=== PATIENT | male | born 1945 | race Caucasian/White ===

== ENCOUNTER 2019-12-19 05:51 | Inpatient (IN) ==
[2019-12-19] MEDS ORDERED: VANCOMYCIN 1,000 MG VIAL ONE (06:00)
[2019-12-19] MEDS ORDERED: ceFAZolin 1,000 MG VIAL ONE (06:00)
[2019-12-19] MEDS ORDERED: ceFAZolin 1,000 MG in SYRINGE 1 EACH IV ONE (06:30)
[2019-12-19] MEDS ORDERED: VANCOMYCIN INJ 1,000 MG in SODIUM CHLORIDE 0.9% 250 ML IV ONE (06:30)
[2019-12-19 06:54] LABS: PT Patient Result 10.8 SECS (9.8-11.9); Partial Thromboplastin Time 26.5 SECS (23.9-33.8)
[2019-12-19] MEDS ORDERED: BUPIVACAINE SPINAL 0.75% 2 ML AMP SPINAL ONE (06:54)
[2019-12-19] MEDS ORDERED: ROPIVACAINE 0.5% 30 ML VIAL ONE (06:54)
[2019-12-19] MEDS ORDERED: MIDAZOLAM 2 MG/2 ML VIAL ONE (06:54)
[2019-12-19] MEDS ORDERED: LIDOCAINE 1% 5 ML VIAL ONE (06:54)
[2019-12-19] MEDS ORDERED: DEXAMETHASONE 4 MG/1 ML VIAL ONE (06:55)
[2019-12-19] MEDS ORDERED: fentaNYL 100 MCG/2 ML VIAL ONE (06:55)
[2019-12-19] MEDS ORDERED: TRANEXAMIC ACID 1,000 MG/10 ML VIAL ONE (07:10)
[2019-12-19] MEDS: LACTATED RINGERS 1,000 ML IV SCH (07:25)
[2019-12-19] MEDS ORDERED: LACTULOSE 20 GM/30 ML UDCUP PO PRN (08:54)
[2019-12-19] MEDS ORDERED: diphenhydrAMINE CAP 25 MG CAPSULE PO PRN (08:54)
[2019-12-19] MEDS ORDERED: BISACODYL 10 MG SUPP RECTAL PRN (08:54)
[2019-12-19] MEDS ORDERED: PROMETHAZINE 25 MG/1 ML VIAL IM PRN (08:54)
[2019-12-19] MEDS ORDERED: MORPHINE 4 MG/1 ML VIAL IV PRN ×2 (08:54→09:25)
[2019-12-19] MEDS ORDERED: ONDANSETRON 4 MG/2 ML VIAL IV PRN ×2 (08:54→13:52)
[2019-12-19] MEDS ORDERED: TEMAZEPAM 7.5 MG CAPSULE PO PRN (08:54)
[2019-12-19] MEDS ORDERED: GLUCAGON 1 MG VIAL IM PRN (08:56)
[2019-12-19] MEDS ORDERED: DEXTROSE 50% 25 GM/50 ML VIAL IV PRN (08:56)
[2019-12-19] MEDS ORDERED: propofoL 200 MG/20 ML VIAL IV ONE (10:28)
[2019-12-19] MEDS ORDERED: GLYCOPYRROLATE 0.4 MG/2 ML VIAL ONE (10:29)
[2019-12-19] MEDS ORDERED: HYDROmorphone 2 MG/1 ML VIAL ONE (13:37)
[2019-12-19] MEDS ORDERED: ONDANSETRON 4 MG/2 ML VIAL ONE (13:37)
[2019-12-19] MEDS: HYDROmorphone 2 MG/1 ML VIAL IV PRN ×2 (13:39→13:53)
[2019-12-19] MEDS: ASPIRIN EC 81 MG TABLET PO SCH (15:53)
[2019-12-19] MEDS: PIOGLITAZONE 15 MG TABLET PO SCH (15:53)
[2019-12-19] MEDS: MULTIVITAMIN (CENTRUM) TABLET PO SCH (15:54)
[2019-12-19] MEDS: DOCUSATE SODIUM 100 MG CAPSULE PO SCH ×2 (15:54→21:29)
[2019-12-19] MEDS: ATORVASTATIN 40 MG TABLET PO SCH (15:54)
[2019-12-19] MEDS: GABAPENTIN 300 MG CAPSULE PO SCH ×2 (15:54→21:29)
[2019-12-19] MEDS: hydroCHLOROthiazide 12.5 MG CAPSULE PO SCH (15:54)
[2019-12-19] MEDS: TAMSULOSIN 0.4 MG CAPSULE PO SCH (15:54)
[2019-12-19] MEDS: CLOPIDOGREL 75 MG TABLET PO SCH (15:55)
[2019-12-19] MEDS: amLODIPine 5 MG TABLET PO SCH (15:55)
[2019-12-19] MEDS: INSULIN REGULAR 100 UNIT/ML SUBCUT SCH ×3 (15:55→21:39)
[2019-12-19] MEDS: atenoloL 50 MG TABLET PO SCH (15:55)
[2019-12-19] MEDS: ceFAZolin 2,000 MG in PREMIX 1 EACH IV SCH (17:36)
[2019-12-19] MEDS: glipiZIDE 5 MG TABLET PO SCH (21:28)
[2019-12-19] MEDS: metFORMIN 500 MG TABLET PO SCH (21:29)
[2019-12-19] MEDS: FONDAPARINUX 2.5 MG/0.5 ML SYRINGE SUBCUT SCH (21:30)
[2019-12-20] MEDS: ceFAZolin 2,000 MG in PREMIX 1 EACH IV SCH (03:13)
[2019-12-20 06:11] LABS: Basophils % 0.2 % (0.0-0.8); Eosinophils % 0.2 % (0.00-10.9); Hematocrit 41.7 VOL% (42.0-52.0); Hemoglobin 13.4 GM/DL (14.0-18.0); Immature Granulocytes % 0.8 %; Immature Granulocytes Absolute 0.11 #; Lymphocytes # 1.8 10*3/uL (1.4-4.0); Lymphocytes % 13.4 % (21.2-54.2); Mean Corpuscular HGB Conc 32.1 GM/DL (32-36); Mean Corpuscular Volume 92.7 FL (87-102); Mean Platelet Volume 10.6 FL (9.6-12.0); Monocytes % 11.7 % (1.7-12.7); Neutrophils % 73.7 % (38.7-73.9); Platelet Count 255 T/CUMM (130-400); Red Cell Distribution Width 13.2 % (9.3-17.3); White Blood Count 13.3 T/CUMM (4-12)
[2019-12-20 06:36] LABS: Calcium 8.7 MG/DL (8.5-10.1); Osmolality,Calculated 276.8 MOS/KG (273-304)
[2019-12-20] MEDS: INSULIN REGULAR 100 UNIT/ML SUBCUT SCH ×4 (07:48→21:34)
[2019-12-20] MEDS: glipiZIDE 5 MG TABLET PO SCH ×2 (09:31→21:30)
[2019-12-20] MEDS: PIOGLITAZONE 15 MG TABLET PO SCH (09:31)
[2019-12-20] MEDS: amLODIPine 5 MG TABLET PO SCH (09:31)
[2019-12-20] MEDS: hydroCHLOROthiazide 12.5 MG CAPSULE PO SCH (09:31)
[2019-12-20] MEDS: TAMSULOSIN 0.4 MG CAPSULE PO SCH (09:31)
[2019-12-20] MEDS: ASPIRIN EC 81 MG TABLET PO SCH (09:32)
[2019-12-20] MEDS: CLOPIDOGREL 75 MG TABLET PO SCH (09:32)
[2019-12-20] MEDS: MULTIVITAMIN (CENTRUM) TABLET PO SCH (09:32)
[2019-12-20] MEDS: atenoloL 50 MG TABLET PO SCH (09:32)
[2019-12-20] MEDS: DOCUSATE SODIUM 100 MG CAPSULE PO SCH ×2 (09:32→21:31)
[2019-12-20] MEDS: metFORMIN 500 MG TABLET PO SCH ×2 (09:47→21:30)
[2019-12-20] MEDS: GABAPENTIN 300 MG CAPSULE PO SCH ×2 (09:47→21:33)
[2019-12-20] MEDS: ATORVASTATIN 40 MG TABLET PO SCH (09:47)
[2019-12-20] MEDS: FONDAPARINUX 2.5 MG/0.5 ML SYRINGE SUBCUT SCH (21:30)
[2019-12-21 06:09] LABS: Basophils # 0.1 10*3/uL (0.0-0.2); Basophils % 0.5 % (0.0-0.8); Eosinophils # 0.2 10*3/uL (0.0-0.87); Eosinophils % 1.5 % (0.00-10.9); Hematocrit 39.3 VOL% (42.0-52.0); Hemoglobin 12.6 GM/DL (14.0-18.0); Immature Granulocytes % 1.4 %; Immature Granulocytes Absolute 0.14 #; Lymphocytes # 1.9 10*3/uL (1.4-4.0); Lymphocytes % 18.4 % (21.2-54.2); Mean Corpuscular HGB Conc 32.1 GM/DL (32-36); Mean Corpuscular Volume 91.8 FL (87-102); Mean Platelet Volume 10.6 FL (9.6-12.0); Monocytes % 13.7 % (1.7-12.7); Neutrophils % 64.5 % (38.7-73.9); Platelet Count 230 T/CUMM (130-400); Red Blood Count 4.28 MC/CUMM (3.8-5.5); Red Cell Distribution Width 13.5 % (9.3-17.3); White Blood Count 10.2 T/CUMM (4-12)
[2019-12-21 07:04] LABS: Calcium 9.1 MG/DL (8.5-10.1); Osmolality,Calculated 271.4 MOS/KG (273-304)
[2019-12-21] MEDS: INSULIN REGULAR 100 UNIT/ML SUBCUT SCH ×4 (08:42→21:10)
[2019-12-21] MEDS: MULTIVITAMIN (CENTRUM) TABLET PO SCH (08:42)
[2019-12-21] MEDS: amLODIPine 5 MG TABLET PO SCH (08:42)
[2019-12-21] MEDS: ATORVASTATIN 40 MG TABLET PO SCH (08:42)
[2019-12-21] MEDS: GABAPENTIN 300 MG CAPSULE PO SCH ×2 (08:43→21:11)
[2019-12-21] MEDS: CLOPIDOGREL 75 MG TABLET PO SCH (08:43)
[2019-12-21] MEDS: atenoloL 50 MG TABLET PO SCH (08:43)
[2019-12-21] MEDS: ASPIRIN EC 81 MG TABLET PO SCH (08:43)
[2019-12-21] MEDS: glipiZIDE 5 MG TABLET PO SCH ×2 (08:43→21:11)
[2019-12-21] MEDS: metFORMIN 500 MG TABLET PO SCH ×2 (08:44→21:12)
[2019-12-21] MEDS: PIOGLITAZONE 15 MG TABLET PO SCH (08:44)
[2019-12-21] MEDS: hydroCHLOROthiazide 12.5 MG CAPSULE PO SCH (08:44)
[2019-12-21] MEDS: TAMSULOSIN 0.4 MG CAPSULE PO SCH (08:44)
[2019-12-21] MEDS: DOCUSATE SODIUM 100 MG CAPSULE PO SCH ×2 (08:45→21:11)
[2019-12-21] MEDS: LACTATED RINGERS 1,000 ML IV SCH (13:12)
[2019-12-21] MEDS: FONDAPARINUX 2.5 MG/0.5 ML SYRINGE SUBCUT SCH (21:09)
[2019-12-21] MEDS: MAGNESIUM HYDROXIDE SUSP 30 ML UDCUP PO PRN (21:11)
[2019-12-22 04:35] LABS: Basophils # 0.1 10*3/uL (0.0-0.2); Basophils % 0.6 % (0.0-0.8); Eosinophils # 0.2 10*3/uL (0.0-0.87); Eosinophils % 1.9 % (0.00-10.9); Hematocrit 37.1 VOL% (42.0-52.0); Hemoglobin 12.2 GM/DL (14.0-18.0); Immature Granulocytes Absolute 0.21 #; Lymphocytes # 2.4 10*3/uL (1.4-4.0); Lymphocytes % 22.9 % (21.2-54.2); Mean Corpuscular HGB Conc 32.9 GM/DL (32-36); Mean Corpuscular Volume 90.5 FL (87-102); Mean Platelet Volume 10.5 FL (9.6-12.0); Monocytes % 13.7 % (1.7-12.7); Neutrophils % 58.9 % (38.7-73.9); Platelet Count 224 T/CUMM (130-400); Red Cell Distribution Width 13.5 % (9.3-17.3); White Blood Count 10.3 T/CUMM (4-12)
[2019-12-22 04:53] LABS: Calcium 9.1 MG/DL (8.5-10.1); Osmolality,Calculated 268.4 MOS/KG (273-304)
[2019-12-22] MEDS: INSULIN REGULAR 100 UNIT/ML SUBCUT SCH ×4 (07:44→21:54)
[2019-12-22] MEDS: hydroCHLOROthiazide 12.5 MG CAPSULE PO SCH (09:32)
[2019-12-22] MEDS: MAGNESIUM HYDROXIDE SUSP 30 ML UDCUP PO PRN ×2 (09:32→17:06)
[2019-12-22] MEDS: TAMSULOSIN 0.4 MG CAPSULE PO SCH (09:33)
[2019-12-22] MEDS: DOCUSATE SODIUM 100 MG CAPSULE PO SCH ×2 (09:33→21:53)
[2019-12-22] MEDS: ATORVASTATIN 40 MG TABLET PO SCH (09:33)
[2019-12-22] MEDS: CLOPIDOGREL 75 MG TABLET PO SCH (09:33)
[2019-12-22] MEDS: PIOGLITAZONE 15 MG TABLET PO SCH (09:33)
[2019-12-22] MEDS: atenoloL 50 MG TABLET PO SCH (09:33)
[2019-12-22] MEDS: amLODIPine 5 MG TABLET PO SCH (09:34)
[2019-12-22] MEDS: ASPIRIN EC 81 MG TABLET PO SCH (09:34)
[2019-12-22] MEDS: glipiZIDE 5 MG TABLET PO SCH ×2 (09:34→21:53)
[2019-12-22] MEDS: MULTIVITAMIN (CENTRUM) TABLET PO SCH (09:34)
[2019-12-22] MEDS: GABAPENTIN 300 MG CAPSULE PO SCH ×2 (09:34→21:54)
[2019-12-22] MEDS: metFORMIN 500 MG TABLET PO SCH ×2 (10:09→21:53)
[2019-12-22] MEDS: FONDAPARINUX 2.5 MG/0.5 ML SYRINGE SUBCUT SCH (21:54)
[2019-12-23] MEDS: GABAPENTIN 300 MG CAPSULE PO SCH ×2 (09:01→21:10)
[2019-12-23] MEDS: metFORMIN 500 MG TABLET PO SCH ×2 (09:01→21:09)
[2019-12-23] MEDS: TAMSULOSIN 0.4 MG CAPSULE PO SCH (09:01)
[2019-12-23] MEDS: MULTIVITAMIN (CENTRUM) TABLET PO SCH (09:02)
[2019-12-23] MEDS: hydroCHLOROthiazide 12.5 MG CAPSULE PO SCH (09:02)
[2019-12-23] MEDS: ASPIRIN EC 81 MG TABLET PO SCH (09:02)
[2019-12-23] MEDS: PIOGLITAZONE 15 MG TABLET PO SCH (09:02)
[2019-12-23] MEDS: ATORVASTATIN 40 MG TABLET PO SCH (09:02)
[2019-12-23] MEDS: CLOPIDOGREL 75 MG TABLET PO SCH (09:03)
[2019-12-23] MEDS: amLODIPine 5 MG TABLET PO SCH (09:03)
[2019-12-23] MEDS: glipiZIDE 5 MG TABLET PO SCH ×2 (09:03→21:08)
[2019-12-23] MEDS: atenoloL 50 MG TABLET PO SCH (09:03)
[2019-12-23] MEDS: INSULIN REGULAR 100 UNIT/ML SUBCUT SCH ×4 (09:04→21:15)
[2019-12-23] MEDS: DOCUSATE SODIUM 100 MG CAPSULE PO SCH ×2 (09:04→21:17)
[2019-12-23] MEDS: FONDAPARINUX 2.5 MG/0.5 ML SYRINGE SUBCUT SCH (21:16)
[2019-12-24] MEDS: PIOGLITAZONE 15 MG TABLET PO SCH (09:24)
[2019-12-24] MEDS: TAMSULOSIN 0.4 MG CAPSULE PO SCH (09:25)
[2019-12-24] MEDS: glipiZIDE 5 MG TABLET PO SCH (09:25)
[2019-12-24] MEDS: metFORMIN 500 MG TABLET PO SCH (09:26)
[2019-12-24] MEDS: GABAPENTIN 300 MG CAPSULE PO SCH (09:26)
[2019-12-24] MEDS: MULTIVITAMIN (CENTRUM) TABLET PO SCH (09:26)
[2019-12-24] MEDS: CLOPIDOGREL 75 MG TABLET PO SCH (09:27)
[2019-12-24] MEDS: amLODIPine 5 MG TABLET PO SCH (09:27)
[2019-12-24] MEDS: ATORVASTATIN 40 MG TABLET PO SCH (09:27)
[2019-12-24] MEDS: atenoloL 50 MG TABLET PO SCH (09:28)
[2019-12-24] MEDS: hydroCHLOROthiazide 12.5 MG CAPSULE PO SCH (09:28)
[2019-12-24] MEDS: ASPIRIN EC 81 MG TABLET PO SCH (09:29)
[2019-12-24] MEDS: INSULIN REGULAR 100 UNIT/ML SUBCUT SCH ×2 (10:27→12:00)
[2019-12-24] MEDS: DOCUSATE SODIUM 100 MG CAPSULE PO SCH (10:28)
[2019-12-24 11:52] VITALS: BP 132/77
== END 2019-12-24 11:35 | disposition swing bed (61) | DRG 470 ==
LOC: N.OR 05:51 → N.SDSINP 05:53 → N.3E 14:25
PROVIDERS: ADMIT Orthopaedic Surgery; ATTEND Orthopaedic Surgery

== ENCOUNTER 2022-03-03 10:30 | Inpatient (IN) ==
[2022-03-03] MEDS ORDERED: ALBUTEROL/IPRATROPIUM 3 ML NEB RESP TX STA (11:02)
[2022-03-03] MEDS ORDERED: cefTRIAXone 1,000 MG in SODIUM CHLORIDE 0.9% 100 ML IV STA (11:02)
[2022-03-03 11:45] LABS: Basophils % 0.1 % (0.0-0.8); Hematocrit 37.8 VOL% (42.0-52.0); Hemoglobin 11.9 GM/DL (14.0-18.0); Immature Granulocytes Absolute 0.08 #; Lymphocytes # 0.8 10*3/uL (1.4-4.0); Lymphocytes % 9.7 % (21.2-54.2); Mean Corpuscular HGB Conc 31.5 GM/DL (32-36); Mean Corpuscular Volume 96.9 FL (87-102); Monocytes # 0.6 10*3/uL (0.11-0.8); Monocytes % 7.4 % (1.7-12.7); Neutrophils % 81.8 % (38.7-73.9); Platelet Count 186 T/CUMM (130-400); Red Cell Distribution Width 14.1 % (9.3-17.3); White Blood Count 8.1 T/CUMM (4-12)
[2022-03-03 12:06] LABS: Albumin 2.8 G/DL (3.4-5.0); Bilirubin,Total 0.6 MG/DL (0.20-1.00); Calcium 8.5 MG/DL (8.5-10.1); Osmolality,Calculated 279.7 MOS/KG (273-304); Potassium 3.9 MMOL/L (3.5-5.1); Total Protein 6.6 G/DL (6.4-8.2)
[2022-03-03] MEDS ORDERED: ACETAMINOPHEN 325 MG TABLET PO PRN (14:03)
[2022-03-03] MEDS ORDERED: ONDANSETRON 4 MG/2 ML VIAL IV PRN (14:03)
[2022-03-03] MEDS ORDERED: GLUCAGON 1 MG VIAL IM PRN (14:06)
[2022-03-03] MEDS ORDERED: DEXTROSE 10% 250 ML BAG IV PRN (14:06)
[2022-03-03] MEDS ORDERED: BENZONATATE 100 MG CAPSULE PO PRN (14:12)
[2022-03-03] MEDS ORDERED: LEVOFLOXACIN 750 MG TABLET PO SCH (14:30)
[2022-03-03] MEDS ORDERED: ALBUTEROL 2.5 MG/3 ML NEB RESP TX PRN (14:40)
[2022-03-03] MEDS ORDERED: INFLUENZA VIRUS VACCINE 0.5 ML SYRINGE IM ONE (17:04)
[2022-03-03] MEDS: PIPERACILLIN/TAZOBACTAM 3,375 MG in SODIUM CHLORIDE 0.9% 100 ML IV SCH (18:11)
[2022-03-03] MEDS: methylPREDNISolone SOD SUC 40 MG/1 ML VIAL IV SCH (18:11)
[2022-03-03] MEDS: ENOXAPARIN 40 MG/0.4 ML SYRINGE SUBCUT SCH (18:11)
[2022-03-03] MEDS: INSULIN LISPRO 100 UNIT/ML SUBCUT SCH ×2 (18:12→21:00)
[2022-03-03 18:21] LABS: Bacteria,Urine Occasional /HPF (Few); Bilirubin,Urine Negative (Negative); Blood, Urine Moderate mg/dL (Negative); Glucose,Urine (UA) Negative (Negative); Ketones,Urine Negative (Negative); Mucus,Urine Moderate /LPF (Occasional); Nitrite,Urine Negative (Negative); Protein,Urine 30 mg/dL (Negative); RBC,Urine 2 /HPF (0-4); Red Blood Cell Casts,Urine 97 /LPF (<1); Squamous Epithelial Cell,Urine Occasional /HPF (0-10); Uric Acid Crystals,Urine Occasional /HPF (<1); Urine Appearance Slightly Hazy (Clear); Urine Color Yellow (Yellow); Urine Specific Gravity 1.023 (1.001-1.035); Urine Urobilinogen < 2.0 eU/dL (<2.0)
[2022-03-03] MEDS: ACETAMINOPHEN 325 MG TABLET PO PRN (18:42)
[2022-03-03] MEDS ORDERED: ALBUTEROL 2.5 MG/3 ML NEB RESP TX SCH (19:00)
[2022-03-03] MEDS: ALBUTEROL/IPRATROPIUM 3 ML NEB RESP TX SCH (19:15)
[2022-03-03] MEDS ORDERED: MORPHINE 2 MG/1 ML SYRINGE IV ONE (20:11)
[2022-03-03] MEDS: MAGNESIUM OXIDE 400 MG TABLET PO SCH (20:48)
[2022-03-03] MEDS: CLOPIDOGREL 75 MG TABLET PO SCH (20:48)
[2022-03-03] MEDS: amLODIPine 5 MG TABLET PO SCH (20:48)
[2022-03-03] MEDS: TAMSULOSIN 0.4 MG CAPSULE PO SCH (20:48)
[2022-03-03] MEDS: guaiFENesin/DM ER 600-30 MG TABLET PO SCH (20:48)
[2022-03-03] MEDS: NIACIN 500 MG TABLET PO SCH (20:48)
[2022-03-03] MEDS: GABAPENTIN 300 MG CAPSULE PO SCH (20:48)
[2022-03-03] MEDS: NABUMETONE 500 MG TABLET PO SCH (20:48)
[2022-03-03] MEDS: MULTIVITAMIN (CENTRUM) TABLET PO SCH (20:48)
[2022-03-03 20:50] LABS: Arterial Base Excess iSTAT 1 MMOL/L (-2.5-2.5); Arterial Bicarbonate iSTAT 23.4 MMOL/L (20-26); Arterial O2 Saturation iSTAT 92 % (95-100); Arterial PCO2 iSTAT 31 MM HG (35-48); Arterial PO2 iSTAT 59 MM HG (80-95); Arterial Total CO2 iSTAT 24 MMO/L (23-27); Arterial pH iSTAT 7.487 (7.35-7.45)
[2022-03-04] MEDS: ALBUTEROL/IPRATROPIUM 3 ML NEB RESP TX SCH ×4 (00:20→19:25)
[2022-03-04] MEDS: PIPERACILLIN/TAZOBACTAM 3,375 MG in SODIUM CHLORIDE 0.9% 100 ML IV SCH ×3 (01:38→17:34)
[2022-03-04] MEDS: methylPREDNISolone SOD SUC 40 MG/1 ML VIAL IV SCH ×2 (03:16→15:25)
[2022-03-04 05:34] LABS: Basophils % 0.1 % (0.0-0.8); Hematocrit 35.7 VOL% (42.0-52.0); Hemoglobin 11.4 GM/DL (14.0-18.0); Immature Granulocytes % 1.6 %; Immature Granulocytes Absolute 0.13 #; Lymphocytes # 0.6 10*3/uL (1.4-4.0); Lymphocytes % 7.1 % (21.2-54.2); Mean Corpuscular HGB Conc 31.9 GM/DL (32-36); Mean Corpuscular Volume 96.2 FL (87-102); Mean Platelet Volume 9.9 FL (9.6-12.0); Monocytes # 0.4 10*3/uL (0.11-0.8); Monocytes % 4.3 % (1.7-12.7); Neutrophils % 86.9 % (38.7-73.9); Platelet Count 169 T/CUMM (130-400); Red Blood Count 3.71 MC/CUMM (3.8-5.5); Red Cell Distribution Width 13.9 % (9.3-17.3); White Blood Count 8.1 T/CUMM (4-12)
[2022-03-04 05:53] LABS: Albumin 2.4 G/DL (3.4-5.0); Bilirubin,Total 0.6 MG/DL (0.20-1.00); Calcium 8.4 MG/DL (8.5-10.1); Osmolality,Calculated 274.4 MOS/KG (273-304); Potassium 4.1 MMOL/L (3.5-5.1); Total Protein 6.3 G/DL (6.4-8.2)
[2022-03-04] MEDS: FINASTERIDE 5 MG TABLET PO SCH (09:04)
[2022-03-04] MEDS: TAMSULOSIN 0.4 MG CAPSULE PO SCH ×2 (09:04→22:23)
[2022-03-04] MEDS: INSULIN LISPRO 100 UNIT/ML SUBCUT SCH ×4 (09:04→22:25)
[2022-03-04] MEDS: lisinopriL 5 MG TABLET PO SCH (09:04)
[2022-03-04] MEDS: atenoloL 50 MG TABLET PO SCH (09:04)
[2022-03-04] MEDS: hydroCHLOROthiazide 25 MG TABLET PO SCH (09:04)
[2022-03-04] MEDS: CITALOPRAM 20 MG TABLET PO SCH (09:04)
[2022-03-04] MEDS: ASPIRIN EC 81 MG TABLET PO SCH (09:04)
[2022-03-04] MEDS: GABAPENTIN 300 MG CAPSULE PO SCH ×2 (09:04→22:25)
[2022-03-04] MEDS: NABUMETONE 500 MG TABLET PO SCH ×2 (09:04→22:24)
[2022-03-04] MEDS: PANTOPRAZOLE 40 MG TABLET PO SCH (09:04)
[2022-03-04] MEDS ORDERED: FUROSEMIDE 40 MG/4 ML VIAL IV ONE (10:13)
[2022-03-04] MEDS: guaiFENesin/DM ER 600-30 MG TABLET PO SCH (10:20)
[2022-03-04] MEDS: ENOXAPARIN 40 MG/0.4 ML SYRINGE SUBCUT SCH (15:25)
[2022-03-04] MEDS ORDERED: GLIPIZIDE METFORMIN PO SCH (21:00)
[2022-03-04] MEDS: glipiZIDE 5 MG TABLET PO SCH (22:23)
[2022-03-04] MEDS: PIOGLITAZONE 15 MG TABLET PO SCH (22:24)
[2022-03-04] MEDS: amLODIPine 5 MG TABLET PO SCH (22:24)
[2022-03-04] MEDS: MULTIVITAMIN (CENTRUM) TABLET PO SCH (22:24)
[2022-03-04] MEDS: metFORMIN 500 MG TABLET PO SCH (22:24)
[2022-03-04] MEDS: CLOPIDOGREL 75 MG TABLET PO SCH (22:24)
[2022-03-04] MEDS: ATORVASTATIN 40 MG TABLET PO SCH (22:24)
[2022-03-04] MEDS: MAGNESIUM OXIDE 400 MG TABLET PO SCH (22:25)
[2022-03-04] MEDS: NIACIN 500 MG TABLET PO SCH (22:35)
[2022-03-05] MEDS: ALBUTEROL/IPRATROPIUM 3 ML NEB RESP TX SCH ×4 (00:15→19:40)
[2022-03-05] MEDS: PIPERACILLIN/TAZOBACTAM 3,375 MG in SODIUM CHLORIDE 0.9% 100 ML IV SCH ×3 (01:57→16:43)
[2022-03-05] MEDS: methylPREDNISolone SOD SUC 40 MG/1 ML VIAL IV SCH ×2 (02:02→16:43)
[2022-03-05 05:29] LABS: Basophils % 0.2 % (0.0-0.8); Hematocrit 37.7 VOL% (42.0-52.0); Hemoglobin 12.1 GM/DL (14.0-18.0); Immature Granulocytes % 1.5 %; Immature Granulocytes Absolute 0.17 #; Lymphocytes # 0.7 10*3/uL (1.4-4.0); Lymphocytes % 6.4 % (21.2-54.2); Mean Corpuscular HGB Conc 32.1 GM/DL (32-36); Mean Platelet Volume 10.5 FL (9.6-12.0); Monocytes # 0.4 10*3/uL (0.11-0.8); Monocytes % 3.8 % (1.7-12.7); NRBC # 0.02 10*3/uL; Neutrophils % 88.1 % (38.7-73.9); Platelet Count 212 T/CUMM (130-400); Red Blood Count 3.97 MC/CUMM (3.8-5.5); Red Cell Distribution Width 13.6 % (9.3-17.3); White Blood Count 11.2 T/CUMM (4-12)
[2022-03-05 05:34] LABS: Osmolality,Calculated 272.2 MOS/KG (273-304); Potassium 3.6 MMOL/L (3.5-5.1)
[2022-03-05 06:21] LABS: Anisocytosis Slight; Platelet Estimate Normal
[2022-03-05 06:22] LABS: Burr Cells Few
[2022-03-05] MEDS: INSULIN LISPRO 100 UNIT/ML SUBCUT SCH ×4 (08:24→22:28)
[2022-03-05] MEDS: metFORMIN 500 MG TABLET PO SCH ×2 (09:39→22:00)
[2022-03-05] MEDS: TAMSULOSIN 0.4 MG CAPSULE PO SCH ×2 (09:40→22:01)
[2022-03-05] MEDS: FINASTERIDE 5 MG TABLET PO SCH (09:40)
[2022-03-05] MEDS: ASPIRIN EC 81 MG TABLET PO SCH (09:40)
[2022-03-05] MEDS: lisinopriL 5 MG TABLET PO SCH (09:41)
[2022-03-05] MEDS: GABAPENTIN 300 MG CAPSULE PO SCH ×2 (09:41→22:01)
[2022-03-05] MEDS: PANTOPRAZOLE 40 MG TABLET PO SCH (09:41)
[2022-03-05] MEDS: NABUMETONE 500 MG TABLET PO SCH ×2 (09:41→22:00)
[2022-03-05] MEDS: CITALOPRAM 20 MG TABLET PO SCH (09:41)
[2022-03-05] MEDS: atenoloL 50 MG TABLET PO SCH (09:42)
[2022-03-05] MEDS: glipiZIDE 5 MG TABLET PO SCH ×2 (09:42→22:00)
[2022-03-05] MEDS: hydroCHLOROthiazide 25 MG TABLET PO SCH (09:44)
[2022-03-05] MEDS: ENOXAPARIN 40 MG/0.4 ML SYRINGE SUBCUT SCH (16:44)
[2022-03-05 17:27] LABS: Arterial Base Excess iSTAT 6 MMOL/L (-2.5-2.5); Arterial O2 Saturation iSTAT 85 % (95-100); Arterial PCO2 iSTAT 45 MM HG (35-48); Arterial PO2 iSTAT 48 MM HG (80-95); Arterial Total CO2 iSTAT 32 MMO/L (23-27); Arterial pH iSTAT 7.451 (7.35-7.45)
[2022-03-05 17:43] LABS: Basophils % 0.2 % (0.0-0.8); Hematocrit 38.2 VOL% (42.0-52.0); Hemoglobin 12.2 GM/DL (14.0-18.0); Immature Granulocytes % 1.8 %; Immature Granulocytes Absolute 0.19 #; Lymphocytes # 1.1 10*3/uL (1.4-4.0); Mean Corpuscular HGB Conc 31.9 GM/DL (32-36); Mean Corpuscular Volume 95.3 FL (87-102); Mean Platelet Volume 10.1 FL (9.6-12.0); Monocytes # 0.5 10*3/uL (0.11-0.8); Monocytes % 4.4 % (1.7-12.7); Neutrophils % 83.6 % (38.7-73.9); Platelet Count 221 T/CUMM (130-400); Red Blood Count 4.01 MC/CUMM (3.8-5.5); Red Cell Distribution Width 13.8 % (9.3-17.3); White Blood Count 10.8 T/CUMM (4-12)
[2022-03-05 18:02] LABS: Albumin 2.3 G/DL (3.4-5.0); Bilirubin,Total 0.6 MG/DL (0.20-1.00); Calcium 8.9 MG/DL (8.5-10.1); Osmolality,Calculated 275.1 MOS/KG (273-304); Potassium 3.7 MMOL/L (3.5-5.1); Total Protein 6.5 G/DL (6.4-8.2)
[2022-03-05 18:34] LABS: Band Neutrophils 1 % (0-10); Lymphocytes 5 % (20-55); Total Cells Counted 100
[2022-03-05 18:35] LABS: Polychromasia Slight
[2022-03-05 18:36] LABS: Platelet Estimate Adequate; Spherocytes Slight
[2022-03-05] MEDS: NIACIN 500 MG TABLET PO SCH (22:01)
[2022-03-05] MEDS: PIOGLITAZONE 15 MG TABLET PO SCH (22:01)
[2022-03-05] MEDS: amLODIPine 5 MG TABLET PO SCH (22:01)
[2022-03-05] MEDS: MULTIVITAMIN (CENTRUM) TABLET PO SCH (22:01)
[2022-03-05] MEDS: CLOPIDOGREL 75 MG TABLET PO SCH (22:01)
[2022-03-05] MEDS: ATORVASTATIN 40 MG TABLET PO SCH (22:01)
[2022-03-05] MEDS: MAGNESIUM OXIDE 400 MG TABLET PO SCH (22:02)
[2022-03-06] MEDS: ALBUTEROL/IPRATROPIUM 3 ML NEB RESP TX SCH ×4 (02:10→20:28)
[2022-03-06 05:41] LABS: Basophils % 0.2 % (0.0-0.8); Hematocrit 35.9 VOL% (42.0-52.0); Hemoglobin 11.5 GM/DL (14.0-18.0); Immature Granulocytes % 2.8 %; Immature Granulocytes Absolute 0.28 #; Lymphocytes % 9.4 % (21.2-54.2); Mean Corpuscular Volume 94.5 FL (87-102); Mean Platelet Volume 10.4 FL (9.6-12.0); Monocytes # 0.6 10*3/uL (0.11-0.8); Monocytes % 5.6 % (1.7-12.7); Platelet Count 235 T/CUMM (130-400); Red Cell Distribution Width 13.8 % (9.3-17.3); White Blood Count 10.1 T/CUMM (4-12)
[2022-03-06 06:01] LABS: Osmolality,Calculated 273.2 MOS/KG (273-304); Potassium 3.5 MMOL/L (3.5-5.1)
[2022-03-06] MEDS: methylPREDNISolone SOD SUC 40 MG/1 ML VIAL IV SCH ×2 (06:30→17:06)
[2022-03-06] MEDS: PIPERACILLIN/TAZOBACTAM 3,375 MG in SODIUM CHLORIDE 0.9% 100 ML IV SCH ×3 (06:30→22:45)
[2022-03-06] MEDS: INSULIN LISPRO 100 UNIT/ML SUBCUT SCH ×4 (07:51→21:32)
[2022-03-06 08:13] LABS: Arterial Base Excess iSTAT 11 MMOL/L (-2.5-2.5); Arterial Bicarbonate iSTAT 35.8 MMOL/L (20-26); Arterial O2 Saturation iSTAT 94 % (95-100); Arterial PCO2 iSTAT 47 MM HG (35-48); Arterial PO2 iSTAT 67 MM HG (80-95); Arterial Total CO2 iSTAT 37 MMO/L (23-27); Arterial pH iSTAT 7.493 (7.35-7.45)
[2022-03-06] MEDS: FINASTERIDE 5 MG TABLET PO SCH (09:57)
[2022-03-06] MEDS: ASPIRIN EC 81 MG TABLET PO SCH (09:57)
[2022-03-06] MEDS: ACETAMINOPHEN 325 MG TABLET PO PRN (09:57)
[2022-03-06] MEDS: PANTOPRAZOLE 40 MG TABLET PO SCH (09:57)
[2022-03-06] MEDS: CITALOPRAM 20 MG TABLET PO SCH (09:57)
[2022-03-06] MEDS: TAMSULOSIN 0.4 MG CAPSULE PO SCH ×2 (09:58→21:25)
[2022-03-06] MEDS: lisinopriL 5 MG TABLET PO SCH (09:58)
[2022-03-06] MEDS: glipiZIDE 5 MG TABLET PO SCH ×2 (09:58→21:25)
[2022-03-06] MEDS: GABAPENTIN 300 MG CAPSULE PO SCH ×2 (09:58→21:24)
[2022-03-06] MEDS: NABUMETONE 500 MG TABLET PO SCH ×2 (09:58→21:25)
[2022-03-06] MEDS: atenoloL 50 MG TABLET PO SCH (09:58)
[2022-03-06] MEDS: hydroCHLOROthiazide 25 MG TABLET PO SCH (09:59)
[2022-03-06] MEDS: metFORMIN 500 MG TABLET PO SCH ×2 (09:59→21:25)
[2022-03-06 16:49] LABS: Arterial Base Excess iSTAT 6 MMOL/L (-2.5-2.5); Arterial Bicarbonate iSTAT 30.8 MMOL/L (20-26); Arterial O2 Saturation iSTAT 95 % (95-100); Arterial PCO2 iSTAT 45 MM HG (35-48); Arterial PO2 iSTAT 74 MM HG (80-95); Arterial Total CO2 iSTAT 32 MMO/L (23-27); Arterial pH iSTAT 7.446 (7.35-7.45)
[2022-03-06] MEDS: ENOXAPARIN 40 MG/0.4 ML SYRINGE SUBCUT SCH (17:06)
[2022-03-06] MEDS: CLOPIDOGREL 75 MG TABLET PO SCH (21:24)
[2022-03-06] MEDS: MAGNESIUM OXIDE 400 MG TABLET PO SCH (21:24)
[2022-03-06] MEDS: ATORVASTATIN 40 MG TABLET PO SCH (21:24)
[2022-03-06] MEDS: PIOGLITAZONE 15 MG TABLET PO SCH (21:25)
[2022-03-06] MEDS: MULTIVITAMIN (CENTRUM) TABLET PO SCH (21:25)
[2022-03-06] MEDS: NIACIN 500 MG TABLET PO SCH (21:25)
[2022-03-06] MEDS: amLODIPine 5 MG TABLET PO SCH (21:26)
[2022-03-07] MEDS: ALBUTEROL/IPRATROPIUM 3 ML NEB RESP TX SCH ×4 (01:23→19:12)
[2022-03-07] MEDS: methylPREDNISolone SOD SUC 40 MG/1 ML VIAL IV SCH ×2 (03:07→16:43)
[2022-03-07 05:26] LABS: Basophils % 0.4 % (0.0-0.8); Hematocrit 36.1 VOL% (42.0-52.0); Hemoglobin 11.6 GM/DL (14.0-18.0); Immature Granulocytes % 6.1 %; Immature Granulocytes Absolute 0.66 #; Lymphocytes % 8.8 % (21.2-54.2); Mean Corpuscular HGB Conc 32.1 GM/DL (32-36); Mean Corpuscular Volume 94.5 FL (87-102); Mean Platelet Volume 10.4 FL (9.6-12.0); Monocytes # 0.7 10*3/uL (0.11-0.8); Monocytes % 6.2 % (1.7-12.7); Neutrophils % 78.5 % (38.7-73.9); Platelet Count 252 T/CUMM (130-400); Red Blood Count 3.82 MC/CUMM (3.8-5.5); Red Cell Distribution Width 13.7 % (9.3-17.3); White Blood Count 10.8 T/CUMM (4-12)
[2022-03-07 05:44] LABS: Calcium 9.3 MG/DL (8.5-10.1); Osmolality,Calculated 280.7 MOS/KG (273-304); Potassium 4.1 MMOL/L (3.5-5.1)
[2022-03-07 06:35] LABS: Lymphocytes 7 % (20-55); Total Cells Counted 100
[2022-03-07 06:36] LABS: Platelet Estimate Adequate
[2022-03-07] MEDS: PIPERACILLIN/TAZOBACTAM 3,375 MG in SODIUM CHLORIDE 0.9% 100 ML IV SCH ×3 (06:39→22:17)
[2022-03-07] MEDS: INSULIN LISPRO 100 UNIT/ML SUBCUT SCH ×4 (07:40→20:11)
[2022-03-07] MEDS: GABAPENTIN 300 MG CAPSULE PO SCH ×2 (09:18→22:16)
[2022-03-07] MEDS: metFORMIN 500 MG TABLET PO SCH ×2 (09:18→22:16)
[2022-03-07] MEDS: ASPIRIN EC 81 MG TABLET PO SCH (09:18)
[2022-03-07] MEDS: atenoloL 50 MG TABLET PO SCH (09:18)
[2022-03-07] MEDS: FINASTERIDE 5 MG TABLET PO SCH (09:18)
[2022-03-07] MEDS: NABUMETONE 500 MG TABLET PO SCH ×2 (09:18→22:15)
[2022-03-07] MEDS: TAMSULOSIN 0.4 MG CAPSULE PO SCH ×2 (09:19→22:15)
[2022-03-07] MEDS: hydroCHLOROthiazide 25 MG TABLET PO SCH (09:19)
[2022-03-07] MEDS: glipiZIDE 5 MG TABLET PO SCH ×2 (09:19→22:16)
[2022-03-07] MEDS: lisinopriL 5 MG TABLET PO SCH (09:19)
[2022-03-07] MEDS: CITALOPRAM 20 MG TABLET PO SCH (09:19)
[2022-03-07] MEDS: ACETAMINOPHEN 325 MG TABLET PO PRN (09:19)
[2022-03-07] MEDS: PANTOPRAZOLE 40 MG TABLET PO SCH (09:20)
[2022-03-07] MEDS: ENOXAPARIN 40 MG/0.4 ML SYRINGE SUBCUT SCH (16:43)
[2022-03-07] MEDS: amLODIPine 5 MG TABLET PO SCH (22:14)
[2022-03-07] MEDS: ATORVASTATIN 40 MG TABLET PO SCH (22:15)
[2022-03-07] MEDS: CLOPIDOGREL 75 MG TABLET PO SCH (22:15)
[2022-03-07] MEDS: MAGNESIUM OXIDE 400 MG TABLET PO SCH (22:15)
[2022-03-07] MEDS: MULTIVITAMIN (CENTRUM) TABLET PO SCH (22:15)
[2022-03-07] MEDS: NIACIN 500 MG TABLET PO SCH (22:16)
[2022-03-07] MEDS: PIOGLITAZONE 15 MG TABLET PO SCH (22:17)
[2022-03-08] MEDS: ALBUTEROL/IPRATROPIUM 3 ML NEB RESP TX SCH ×4 (01:00→19:03)
[2022-03-08] MEDS: methylPREDNISolone SOD SUC 40 MG/1 ML VIAL IV SCH ×2 (04:14→16:04)
[2022-03-08 05:25] LABS: Basophils # 0.1 10*3/uL (0.0-0.2); Basophils % 0.5 % (0.0-0.8); Hematocrit 36.5 VOL% (42.0-52.0); Hemoglobin 11.8 GM/DL (14.0-18.0); Immature Granulocytes % 5.8 %; Immature Granulocytes Absolute 0.69 #; Lymphocytes # 1.1 10*3/uL (1.4-4.0); Lymphocytes % 9.5 % (21.2-54.2); Mean Corpuscular HGB Conc 32.3 GM/DL (32-36); Mean Corpuscular Volume 94.6 FL (87-102); Mean Platelet Volume 10.3 FL (9.6-12.0); Monocytes # 0.8 10*3/uL (0.11-0.8); Neutrophils % 77.2 % (38.7-73.9); Platelet Count 276 T/CUMM (130-400); Red Blood Count 3.86 MC/CUMM (3.8-5.5); Red Cell Distribution Width 13.2 % (9.3-17.3); White Blood Count 11.8 T/CUMM (4-12)
[2022-03-08] MEDS: PIPERACILLIN/TAZOBACTAM 3,375 MG in SODIUM CHLORIDE 0.9% 100 ML IV SCH ×3 (05:37→21:02)
[2022-03-08 05:48] LABS: Hypochromia Slight; Lymphocytes 5 % (20-55); Metamyelocytes 3 %; Microcytosis Slight; Myelocytes 2 %; Total Cells Counted 100
[2022-03-08 05:49] LABS: Platelet Estimate Normal
[2022-03-08 06:07] LABS: Calcium 9.2 MG/DL (8.5-10.1); Osmolality,Calculated 280.5 MOS/KG (273-304); Potassium 4.2 MMOL/L (3.5-5.1)
[2022-03-08] MEDS: INSULIN LISPRO 100 UNIT/ML SUBCUT SCH ×4 (09:41→20:06)
[2022-03-08] MEDS: metFORMIN 500 MG TABLET PO SCH ×2 (09:47→20:56)
[2022-03-08] MEDS: FINASTERIDE 5 MG TABLET PO SCH (09:48)
[2022-03-08] MEDS: ASPIRIN EC 81 MG TABLET PO SCH (09:48)
[2022-03-08] MEDS: hydroCHLOROthiazide 25 MG TABLET PO SCH (09:48)
[2022-03-08] MEDS: glipiZIDE 5 MG TABLET PO SCH ×2 (09:49→20:56)
[2022-03-08] MEDS: NABUMETONE 500 MG TABLET PO SCH ×2 (09:49→20:55)
[2022-03-08] MEDS: lisinopriL 5 MG TABLET PO SCH (09:49)
[2022-03-08] MEDS: PANTOPRAZOLE 40 MG TABLET PO SCH (09:50)
[2022-03-08] MEDS: CITALOPRAM 20 MG TABLET PO SCH (09:50)
[2022-03-08] MEDS: atenoloL 50 MG TABLET PO SCH (09:50)
[2022-03-08] MEDS: TAMSULOSIN 0.4 MG CAPSULE PO SCH ×2 (09:50→20:55)
[2022-03-08] MEDS: GABAPENTIN 300 MG CAPSULE PO SCH ×2 (09:50→20:55)
[2022-03-08] MEDS ORDERED: DEXTROSE 50% 25 GM/50 ML VIAL IV PRN (13:07)
[2022-03-08 14:27] LABS: ABG Base Excess 4.7 MMOL/L (-2.5-2.5); ABG HCO3 28.5 MMOL/L (20-26); ABG Oxygen Saturation 92.8 % (95-100); ABG PCO2 42.5 MM HG (35-48); ABG PH 7.445 (7.35-7.45); ABG PO2 68.7 MM HG (80-95); ABG TCO2 25.9 MMOL/L (23-27)
[2022-03-08] MEDS: ENOXAPARIN 40 MG/0.4 ML SYRINGE SUBCUT SCH (16:04)
[2022-03-08] MEDS: PIOGLITAZONE 15 MG TABLET PO SCH (20:55)
[2022-03-08] MEDS: CLOPIDOGREL 75 MG TABLET PO SCH (20:55)
[2022-03-08] MEDS: ATORVASTATIN 40 MG TABLET PO SCH (20:55)
[2022-03-08] MEDS: MAGNESIUM OXIDE 400 MG TABLET PO SCH (20:55)
[2022-03-08] MEDS: NIACIN 500 MG TABLET PO SCH (20:56)
[2022-03-08] MEDS: amLODIPine 5 MG TABLET PO SCH (20:56)
[2022-03-08] MEDS: MULTIVITAMIN (CENTRUM) TABLET PO SCH (20:56)
[2022-03-09] MEDS: ALBUTEROL/IPRATROPIUM 3 ML NEB RESP TX SCH ×4 (00:06→19:30)
[2022-03-09 04:02] LABS: Arterial Base Excess iSTAT 6 MMOL/L (-2.5-2.5); Arterial Bicarbonate iSTAT 30.1 MMOL/L (20-26); Arterial O2 Saturation iSTAT 96 % (95-100); Arterial PCO2 iSTAT 43 MM HG (35-48); Arterial PO2 iSTAT 76 MM HG (80-95); Arterial Total CO2 iSTAT 31 MMO/L (23-27); Arterial pH iSTAT 7.457 (7.35-7.45)
[2022-03-09] MEDS: methylPREDNISolone SOD SUC 40 MG/1 ML VIAL IV SCH ×2 (04:31→15:02)
[2022-03-09] MEDS: PIPERACILLIN/TAZOBACTAM 3,375 MG in SODIUM CHLORIDE 0.9% 100 ML IV SCH ×3 (04:59→21:00)
[2022-03-09 05:47] LABS: Basophils # 0.1 10*3/uL (0.0-0.2); Basophils % 0.9 % (0.0-0.8); Eosinophils % 0.1 % (0.00-10.9); Hematocrit 36.5 VOL% (42.0-52.0); Hemoglobin 11.6 GM/DL (14.0-18.0); Immature Granulocytes % 7.3 %; Immature Granulocytes Absolute 1.02 #; Lymphocytes # 1.1 10*3/uL (1.4-4.0); Lymphocytes % 7.7 % (21.2-54.2); Mean Corpuscular HGB Conc 31.8 GM/DL (32-36); Mean Corpuscular Volume 94.3 FL (87-102); Mean Platelet Volume 10.4 FL (9.6-12.0); Monocytes # 0.9 10*3/uL (0.11-0.8); Monocytes % 6.3 % (1.7-12.7); Neutrophils % 77.7 % (38.7-73.9); Platelet Count 286 T/CUMM (130-400); Red Blood Count 3.87 MC/CUMM (3.8-5.5); Red Cell Distribution Width 13.2 % (9.3-17.3)
[2022-03-09 06:09] LABS: Bilirubin,Total 0.5 MG/DL (0.20-1.00); Osmolality,Calculated 271.1 MOS/KG (273-304); Potassium 3.9 MMOL/L (3.5-5.1); Total Protein 6.4 G/DL (6.4-8.2)
[2022-03-09 06:11] LABS: Eosinophils 1 % (0-10); Lymphocytes 7 % (20-55); Metamyelocytes 1 %; Myelocytes 1 %; Total Cells Counted 100
[2022-03-09 06:12] LABS: Microcytosis Slight
[2022-03-09 06:13] LABS: Ovalocytes Slight; Platelet Estimate Normal
[2022-03-09] MEDS: INSULIN LISPRO 100 UNIT/ML SUBCUT SCH ×4 (08:11→19:59)
[2022-03-09] MEDS: ENOXAPARIN 40 MG/0.4 ML SYRINGE SUBCUT SCH (09:24)
[2022-03-09] MEDS: PANTOPRAZOLE 40 MG TABLET PO SCH (09:24)
[2022-03-09] MEDS: ASPIRIN EC 81 MG TABLET PO SCH (09:24)
[2022-03-09] MEDS: atenoloL 50 MG TABLET PO SCH (09:24)
[2022-03-09] MEDS: TAMSULOSIN 0.4 MG CAPSULE PO SCH ×2 (09:24→20:52)
[2022-03-09] MEDS: lisinopriL 5 MG TABLET PO SCH (09:24)
[2022-03-09] MEDS: NABUMETONE 500 MG TABLET PO SCH ×2 (09:24→20:57)
[2022-03-09] MEDS: glipiZIDE 5 MG TABLET PO SCH ×2 (09:24→20:53)
[2022-03-09] MEDS: CITALOPRAM 20 MG TABLET PO SCH (09:24)
[2022-03-09] MEDS: GABAPENTIN 300 MG CAPSULE PO SCH ×2 (09:24→20:53)
[2022-03-09] MEDS: FINASTERIDE 5 MG TABLET PO SCH (09:25)
[2022-03-09] MEDS: metFORMIN 500 MG TABLET PO SCH ×2 (09:25→20:53)
[2022-03-09] MEDS: hydroCHLOROthiazide 25 MG TABLET PO SCH (09:25)
[2022-03-09] MEDS: FUROSEMIDE 40 MG/4 ML VIAL IV SCH (16:32)
[2022-03-09] MEDS: LOPERAMIDE 2 MG CAPSULE PO PRN ×2 (17:53→20:53)
[2022-03-09] MEDS: ATORVASTATIN 40 MG TABLET PO SCH (20:52)
[2022-03-09] MEDS: PIOGLITAZONE 15 MG TABLET PO SCH (20:52)
[2022-03-09] MEDS: MAGNESIUM OXIDE 400 MG TABLET PO SCH (20:53)
[2022-03-09] MEDS: amLODIPine 5 MG TABLET PO SCH (20:53)
[2022-03-09] MEDS: MULTIVITAMIN (CENTRUM) TABLET PO SCH (20:53)
[2022-03-09] MEDS: CLOPIDOGREL 75 MG TABLET PO SCH (20:53)
[2022-03-09] MEDS: NIACIN 500 MG TABLET PO SCH (20:53)
[2022-03-10] MEDS: ALBUTEROL/IPRATROPIUM 3 ML NEB RESP TX SCH ×4 (00:58→20:24)
[2022-03-10] MEDS: methylPREDNISolone SOD SUC 40 MG/1 ML VIAL IV SCH ×2 (03:52→15:44)
[2022-03-10] MEDS: PIPERACILLIN/TAZOBACTAM 3,375 MG in SODIUM CHLORIDE 0.9% 100 ML IV SCH (05:05)
[2022-03-10] MEDS: INSULIN LISPRO 100 UNIT/ML SUBCUT SCH ×4 (07:30→21:32)
[2022-03-10 08:06] LABS: Basophils # 0.1 10*3/uL (0.0-0.2); Basophils % 0.5 % (0.0-0.8); Eosinophils % 0.2 % (0.00-10.9); Hematocrit 37.8 VOL% (42.0-52.0); Hemoglobin 12.4 GM/DL (14.0-18.0); Immature Granulocytes % 7.9 %; Immature Granulocytes Absolute 1.31 #; Lymphocytes # 0.7 10*3/uL (1.4-4.0); Lymphocytes % 4.1 % (21.2-54.2); Mean Corpuscular HGB Conc 32.8 GM/DL (32-36); Mean Corpuscular Volume 92.9 FL (87-102); Mean Platelet Volume 9.9 FL (9.6-12.0); Monocytes # 0.9 10*3/uL (0.11-0.8); Monocytes % 5.1 % (1.7-12.7); Neutrophils % 82.2 % (38.7-73.9); Platelet Count 305 T/CUMM (130-400); Red Blood Count 4.07 MC/CUMM (3.8-5.5); Red Cell Distribution Width 13.1 % (9.3-17.3); White Blood Count 16.7 T/CUMM (4-12)
[2022-03-10 08:16] LABS: Arterial Base Excess iSTAT 8 MMOL/L (-2.5-2.5); Arterial Bicarbonate iSTAT 33.3 MMOL/L (20-26); Arterial O2 Saturation iSTAT 96 % (95-100); Arterial PCO2 iSTAT 47 MM HG (35-48); Arterial PO2 iSTAT 78 MM HG (80-95); Arterial Total CO2 iSTAT 35 MMO/L (23-27); Arterial pH iSTAT 7.461 (7.35-7.45)
[2022-03-10 08:24] LABS: Lymphocytes 4 % (20-55); Osmolality,Calculated 273.2 MOS/KG (273-304); Platelet Estimate Adequate; Potassium 4.3 MMOL/L (3.5-5.1); Total Cells Counted 100
[2022-03-10] MEDS: NABUMETONE 500 MG TABLET PO SCH ×2 (09:05→21:29)
[2022-03-10] MEDS: ASPIRIN EC 81 MG TABLET PO SCH (09:05)
[2022-03-10] MEDS: FUROSEMIDE 40 MG/4 ML VIAL IV SCH ×2 (09:05→15:44)
[2022-03-10] MEDS: ENOXAPARIN 40 MG/0.4 ML SYRINGE SUBCUT SCH (09:05)
[2022-03-10] MEDS: hydroCHLOROthiazide 25 MG TABLET PO SCH (09:05)
[2022-03-10] MEDS: FINASTERIDE 5 MG TABLET PO SCH (09:05)
[2022-03-10] MEDS: GABAPENTIN 300 MG CAPSULE PO SCH ×2 (09:06→21:32)
[2022-03-10] MEDS: lisinopriL 5 MG TABLET PO SCH (09:06)
[2022-03-10] MEDS: CITALOPRAM 20 MG TABLET PO SCH (09:06)
[2022-03-10] MEDS: atenoloL 50 MG TABLET PO SCH (09:06)
[2022-03-10] MEDS: metFORMIN 500 MG TABLET PO SCH (09:06)
[2022-03-10] MEDS: TAMSULOSIN 0.4 MG CAPSULE PO SCH ×2 (09:06→21:29)
[2022-03-10] MEDS: glipiZIDE 5 MG TABLET PO SCH (09:07)
[2022-03-10] MEDS: PANTOPRAZOLE 40 MG TABLET PO SCH (09:07)
[2022-03-10] MEDS: LOPERAMIDE 2 MG CAPSULE PO PRN (11:20)
[2022-03-10] MEDS: cefTRIAXone 1,000 MG in SODIUM CHLORIDE 0.9% 100 ML IV SCH (17:31)
[2022-03-10] MEDS: ATORVASTATIN 40 MG TABLET PO SCH (21:29)
[2022-03-10] MEDS: NIACIN 500 MG TABLET PO SCH (21:29)
[2022-03-10] MEDS: MAGNESIUM OXIDE 400 MG TABLET PO SCH (21:29)
[2022-03-10] MEDS: CLOPIDOGREL 75 MG TABLET PO SCH (21:29)
[2022-03-10] MEDS: amLODIPine 5 MG TABLET PO SCH (21:29)
[2022-03-10] MEDS: MULTIVITAMIN (CENTRUM) TABLET PO SCH (21:29)
[2022-03-11] MEDS: ALBUTEROL/IPRATROPIUM 3 ML NEB RESP TX SCH ×4 (01:20→19:42)
[2022-03-11] MEDS: methylPREDNISolone SOD SUC 40 MG/1 ML VIAL IV SCH ×2 (03:10→15:23)
[2022-03-11 05:50] LABS: Basophils # 0.1 10*3/uL (0.0-0.2); Basophils % 0.8 % (0.0-0.8); Eosinophils % 0.2 % (0.00-10.9); Hematocrit 37.6 VOL% (42.0-52.0); Hemoglobin 12.3 GM/DL (14.0-18.0); Immature Granulocytes % 9.5 %; Immature Granulocytes Absolute 1.62 #; Lymphocytes # 0.9 10*3/uL (1.4-4.0); Lymphocytes % 5.3 % (21.2-54.2); Mean Corpuscular HGB Conc 32.7 GM/DL (32-36); Mean Corpuscular Volume 93.8 FL (87-102); Mean Platelet Volume 10.4 FL (9.6-12.0); Monocytes # 0.8 10*3/uL (0.11-0.8); Monocytes % 4.6 % (1.7-12.7); Neutrophils % 79.6 % (38.7-73.9); Platelet Count 346 T/CUMM (130-400); Red Blood Count 4.01 MC/CUMM (3.8-5.5); Red Cell Distribution Width 13.1 % (9.3-17.3); White Blood Count 17.1 T/CUMM (4-12)
[2022-03-11 06:07] LABS: ABG Base Excess 8.5 MMOL/L (-2.5-2.5); ABG HCO3 32.1 MMOL/L (20-26); ABG Oxygen Saturation 90.3 % (95-100); ABG PCO2 47.1 MM HG (35-48); ABG PH 7.463 (7.35-7.45); ABG PO2 63.7 MM HG (80-95); ABG TCO2 29.5 MMOL/L (23-27); Allen Test Positive; Pt O2 Delivery Device Other
[2022-03-11 06:10] LABS: Albumin 2.2 G/DL (3.4-5.0); Bilirubin,Total 0.5 MG/DL (0.20-1.00); Calcium 8.9 MG/DL (8.5-10.1); Osmolality,Calculated 281.4 MOS/KG (273-304); Potassium 4.1 MMOL/L (3.5-5.1); Total Protein 6.5 G/DL (6.4-8.2)
[2022-03-11 06:15] LABS: Band Neutrophils 1 % (0-10); Lymphocytes 2 % (20-55); Total Cells Counted 100
[2022-03-11 06:16] LABS: Microcytosis Slight; Platelet Estimate Normal
[2022-03-11] MEDS: NABUMETONE 500 MG TABLET PO SCH ×2 (09:14→21:04)
[2022-03-11] MEDS: GABAPENTIN 300 MG CAPSULE PO SCH ×2 (09:14→21:24)
[2022-03-11] MEDS: INSULIN LISPRO 100 UNIT/ML SUBCUT SCH ×4 (09:14→21:05)
[2022-03-11] MEDS: FUROSEMIDE 40 MG/4 ML VIAL IV SCH (09:15)
[2022-03-11] MEDS: CITALOPRAM 20 MG TABLET PO SCH (09:15)
[2022-03-11] MEDS: FINASTERIDE 5 MG TABLET PO SCH (09:15)
[2022-03-11] MEDS: PANTOPRAZOLE 40 MG TABLET PO SCH (09:15)
[2022-03-11] MEDS: TAMSULOSIN 0.4 MG CAPSULE PO SCH ×2 (09:15→21:04)
[2022-03-11] MEDS: atenoloL 50 MG TABLET PO SCH (09:15)
[2022-03-11] MEDS: hydroCHLOROthiazide 25 MG TABLET PO SCH (09:15)
[2022-03-11] MEDS: ASPIRIN EC 81 MG TABLET PO SCH (09:15)
[2022-03-11] MEDS: lisinopriL 5 MG TABLET PO SCH (09:16)
[2022-03-11] MEDS: ENOXAPARIN 40 MG/0.4 ML SYRINGE SUBCUT SCH (09:16)
[2022-03-11] MEDS: cefTRIAXone 1,000 MG in SODIUM CHLORIDE 0.9% 100 ML IV SCH (09:16)
[2022-03-11] MEDS: INSULIN GLARGINE 100 UNIT/ML SUBCUT SCH (13:43)
[2022-03-11] MEDS: amLODIPine 5 MG TABLET PO SCH (21:04)
[2022-03-11] MEDS: MULTIVITAMIN (CENTRUM) TABLET PO SCH (21:04)
[2022-03-11] MEDS: CLOPIDOGREL 75 MG TABLET PO SCH (21:04)
[2022-03-11] MEDS: MAGNESIUM OXIDE 400 MG TABLET PO SCH (21:05)
[2022-03-11] MEDS: NIACIN 500 MG TABLET PO SCH (21:05)
[2022-03-11] MEDS: ATORVASTATIN 40 MG TABLET PO SCH (21:05)
[2022-03-12] MEDS: ALBUTEROL/IPRATROPIUM 3 ML NEB RESP TX SCH ×4 (01:37→19:05)
[2022-03-12] MEDS: methylPREDNISolone SOD SUC 40 MG/1 ML VIAL IV SCH ×2 (03:05→21:20)
[2022-03-12 05:52] LABS: Basophils # 0.1 10*3/uL (0.0-0.2); Basophils % 0.7 % (0.0-0.8); Eosinophils # 0.1 10*3/uL (0.0-0.87); Eosinophils % 0.3 % (0.00-10.9); Hematocrit 37.6 VOL% (42.0-52.0); Hemoglobin 12.4 GM/DL (14.0-18.0); Immature Granulocytes % 8.4 %; Immature Granulocytes Absolute 1.58 #; Lymphocytes # 0.9 10*3/uL (1.4-4.0); Lymphocytes % 4.6 % (21.2-54.2); Mean Corpuscular Volume 93.5 FL (87-102); Mean Platelet Volume 10.4 FL (9.6-12.0); Monocytes # 0.9 10*3/uL (0.11-0.8); Monocytes % 4.7 % (1.7-12.7); Neutrophils % 81.3 % (38.7-73.9); Platelet Count 370 T/CUMM (130-400); Red Blood Count 4.02 MC/CUMM (3.8-5.5); White Blood Count 18.8 T/CUMM (4-12)
[2022-03-12 06:04] LABS: Calcium 8.9 MG/DL (8.5-10.1); Osmolality,Calculated 284.2 MOS/KG (273-304); Potassium 4.4 MMOL/L (3.5-5.1)
[2022-03-12 06:15] LABS: Eosinophils 1 % (0-10); Lymphocytes 3 % (20-55); Total Cells Counted 100
[2022-03-12 06:18] LABS: Microcytosis Slight
[2022-03-12 06:19] LABS: Platelet Estimate Normal
[2022-03-12 07:29] LABS: Arterial Base Excess iSTAT 9 MMOL/L (-2.5-2.5); Arterial Bicarbonate iSTAT 34.4 MMOL/L (20-26); Arterial O2 Saturation iSTAT 95 % (95-100); Arterial PCO2 iSTAT 48 MM HG (35-48); Arterial PO2 iSTAT 72 MM HG (80-95); Arterial Total CO2 iSTAT 36 MMO/L (23-27); Arterial pH iSTAT 7.462 (7.35-7.45)
[2022-03-12 09:38] LABS: Arterial Base Excess iSTAT 9 MMOL/L (-2.5-2.5); Arterial O2 Saturation iSTAT 92 % (95-100); Arterial PCO2 iSTAT 49 MM HG (35-48); Arterial PO2 iSTAT 63 MM HG (80-95); Arterial Total CO2 iSTAT 35 MMO/L (23-27); Arterial pH iSTAT 7.452 (7.35-7.45)
[2022-03-12] MEDS: INSULIN GLARGINE 100 UNIT/ML SUBCUT SCH (10:04)
[2022-03-12] MEDS: INSULIN LISPRO 100 UNIT/ML SUBCUT SCH ×4 (10:04→21:22)
[2022-03-12] MEDS: ENOXAPARIN 40 MG/0.4 ML SYRINGE SUBCUT SCH (10:06)
[2022-03-12] MEDS: FINASTERIDE 5 MG TABLET PO SCH (10:13)
[2022-03-12] MEDS: GABAPENTIN 300 MG CAPSULE PO SCH ×2 (10:14→21:25)
[2022-03-12] MEDS: PANTOPRAZOLE 40 MG TABLET PO SCH (10:14)
[2022-03-12] MEDS: TAMSULOSIN 0.4 MG CAPSULE PO SCH ×2 (10:14→21:26)
[2022-03-12] MEDS: hydroCHLOROthiazide 25 MG TABLET PO SCH (10:14)
[2022-03-12] MEDS: ASPIRIN EC 81 MG TABLET PO SCH (10:15)
[2022-03-12] MEDS: lisinopriL 5 MG TABLET PO SCH (10:15)
[2022-03-12] MEDS: NABUMETONE 500 MG TABLET PO SCH ×2 (10:15→21:25)
[2022-03-12] MEDS: atenoloL 50 MG TABLET PO SCH (10:15)
[2022-03-12] MEDS: FUROSEMIDE 40 MG/4 ML VIAL IV SCH (10:32)
[2022-03-12] MEDS: cefTRIAXone 1,000 MG in SODIUM CHLORIDE 0.9% 100 ML IV SCH (10:32)
[2022-03-12] MEDS: CITALOPRAM 20 MG TABLET PO SCH (11:25)
[2022-03-12] MEDS: NIACIN 500 MG TABLET PO SCH (21:25)
[2022-03-12] MEDS: CLOPIDOGREL 75 MG TABLET PO SCH (21:25)
[2022-03-12] MEDS: ATORVASTATIN 40 MG TABLET PO SCH (21:25)
[2022-03-12] MEDS: MULTIVITAMIN (CENTRUM) TABLET PO SCH (21:26)
[2022-03-12] MEDS: MAGNESIUM OXIDE 400 MG TABLET PO SCH (21:26)
[2022-03-12] MEDS: amLODIPine 5 MG TABLET PO SCH (21:27)
[2022-03-13] MEDS: ALBUTEROL/IPRATROPIUM 3 ML NEB RESP TX SCH ×4 (00:32→19:15)
[2022-03-13 05:00] LABS: Basophils # 0.1 10*3/uL (0.0-0.2); Basophils % 0.7 % (0.0-0.8); Eosinophils # 0.1 10*3/uL (0.0-0.87); Eosinophils % 0.4 % (0.00-10.9); Hematocrit 39.4 VOL% (42.0-52.0); Hemoglobin 12.5 GM/DL (14.0-18.0); Immature Granulocytes % 6.5 %; Lymphocytes # 0.8 10*3/uL (1.4-4.0); Lymphocytes % 4.7 % (21.2-54.2); Mean Corpuscular HGB Conc 31.7 GM/DL (32-36); Mean Corpuscular Volume 95.2 FL (87-102); Mean Platelet Volume 10.4 FL (9.6-12.0); Monocytes # 0.9 10*3/uL (0.11-0.8); Monocytes % 5.1 % (1.7-12.7); Neutrophils % 82.6 % (38.7-73.9); Platelet Count 400 T/CUMM (130-400); Red Blood Count 4.14 MC/CUMM (3.8-5.5); Red Cell Distribution Width 13.1 % (9.3-17.3); White Blood Count 16.8 T/CUMM (4-12)
[2022-03-13 05:26] LABS: Calcium 9.2 MG/DL (8.5-10.1); Osmolality,Calculated 291.1 MOS/KG (273-304); Potassium 4.9 MMOL/L (3.5-5.1)
[2022-03-13 05:35] LABS: Band Neutrophils 3 % (0-10); Eosinophils 1 % (0-10); Lymphocytes 2 % (20-55); Platelet Estimate Normal; Total Cells Counted 100
[2022-03-13] MEDS: ASPIRIN EC 81 MG TABLET PO SCH (11:02)
[2022-03-13] MEDS: TAMSULOSIN 0.4 MG CAPSULE PO SCH ×2 (11:02→21:21)
[2022-03-13] MEDS: PANTOPRAZOLE 40 MG TABLET PO SCH (11:02)
[2022-03-13] MEDS: NABUMETONE 500 MG TABLET PO SCH ×2 (11:02→21:21)
[2022-03-13] MEDS: GABAPENTIN 300 MG CAPSULE PO SCH ×2 (11:02→21:23)
[2022-03-13] MEDS: atenoloL 25 MG TABLET PO SCH (11:02)
[2022-03-13] MEDS: lisinopriL 5 MG TABLET PO SCH (11:02)
[2022-03-13] MEDS: CITALOPRAM 40 MG TABLET PO SCH (11:02)
[2022-03-13] MEDS: FINASTERIDE 5 MG TABLET PO SCH (11:02)
[2022-03-13] MEDS: INSULIN LISPRO 100 UNIT/ML SUBCUT SCH ×4 (11:04→21:25)
[2022-03-13] MEDS: ENOXAPARIN 40 MG/0.4 ML SYRINGE SUBCUT SCH (11:05)
[2022-03-13] MEDS: INSULIN GLARGINE 100 UNIT/ML SUBCUT SCH (11:05)
[2022-03-13] MEDS: methylPREDNISolone SOD SUC 40 MG/1 ML VIAL IV SCH ×2 (11:08→21:24)
[2022-03-13] MEDS: FUROSEMIDE 40 MG/4 ML VIAL IV SCH ×3 (11:11→17:38)
[2022-03-13] MEDS: cefTRIAXone 1,000 MG in SODIUM CHLORIDE 0.9% 100 ML IV SCH (11:15)
[2022-03-13] MEDS: hydroCHLOROthiazide 25 MG TABLET PO SCH (11:16)
[2022-03-13] MEDS: atenoloL 50 MG TABLET PO SCH (11:16)
[2022-03-13] MEDS: MULTIVITAMIN (CENTRUM) TABLET PO SCH (21:21)
[2022-03-13] MEDS: CLOPIDOGREL 75 MG TABLET PO SCH (21:22)
[2022-03-13] MEDS: amLODIPine 5 MG TABLET PO SCH (21:22)
[2022-03-13] MEDS: MAGNESIUM OXIDE 400 MG TABLET PO SCH (21:22)
[2022-03-13] MEDS: NIACIN 500 MG TABLET PO SCH (21:23)
[2022-03-13] MEDS: ATORVASTATIN 40 MG TABLET PO SCH (21:24)
[2022-03-14] MEDS: ALBUTEROL/IPRATROPIUM 3 ML NEB RESP TX SCH ×4 (00:15→19:36)
[2022-03-14 06:17] LABS: Basophils # 0.1 10*3/uL (0.0-0.2); Basophils % 0.6 % (0.0-0.8); Eosinophils % 0.2 % (0.00-10.9); Hematocrit 38.5 VOL% (42.0-52.0); Hemoglobin 12.7 GM/DL (14.0-18.0); Immature Granulocytes Absolute 1.04 #; Lymphocytes # 0.9 10*3/uL (1.4-4.0); Lymphocytes % 5.1 % (21.2-54.2); Mean Corpuscular Volume 94.4 FL (87-102); Mean Platelet Volume 10.6 FL (9.6-12.0); Monocytes # 0.8 10*3/uL (0.11-0.8); Monocytes % 4.7 % (1.7-12.7); Neutrophils % 83.4 % (38.7-73.9); Platelet Count 353 T/CUMM (130-400); Red Blood Count 4.08 MC/CUMM (3.8-5.5); Red Cell Distribution Width 12.8 % (9.3-17.3); White Blood Count 17.3 T/CUMM (4-12)
[2022-03-14 06:53] LABS: Osmolality,Calculated 290.1 MOS/KG (273-304); Potassium 4.7 MMOL/L (3.5-5.1)
[2022-03-14 07:00] LABS: Band Neutrophils 5 % (0-10); Lymphocytes 4 % (20-55); Metamyelocytes 2 %; Myelocytes 1 %; Platelet Estimate Normal; Total Cells Counted 100
[2022-03-14 07:01] LABS: Macrocytosis Slight
[2022-03-14] MEDS: ENOXAPARIN 40 MG/0.4 ML SYRINGE SUBCUT SCH (10:12)
[2022-03-14] MEDS: GABAPENTIN 300 MG CAPSULE PO SCH ×2 (10:16→20:15)
[2022-03-14] MEDS: NABUMETONE 500 MG TABLET PO SCH ×2 (10:16→20:16)
[2022-03-14] MEDS: TAMSULOSIN 0.4 MG CAPSULE PO SCH ×2 (10:16→20:15)
[2022-03-14] MEDS: CITALOPRAM 40 MG TABLET PO SCH (10:16)
[2022-03-14] MEDS: FINASTERIDE 5 MG TABLET PO SCH (10:16)
[2022-03-14] MEDS: lisinopriL 5 MG TABLET PO SCH (10:17)
[2022-03-14] MEDS: ASPIRIN EC 81 MG TABLET PO SCH (10:17)
[2022-03-14] MEDS: PANTOPRAZOLE 40 MG TABLET PO SCH (10:17)
[2022-03-14] MEDS: INSULIN GLARGINE 100 UNIT/ML SUBCUT SCH (10:18)
[2022-03-14] MEDS: INSULIN LISPRO 100 UNIT/ML SUBCUT SCH ×4 (10:18→20:16)
[2022-03-14] MEDS: methylPREDNISolone SOD SUC 40 MG/1 ML VIAL IV SCH (10:51)
[2022-03-14] MEDS: FUROSEMIDE 40 MG/4 ML VIAL IV SCH (10:51)
[2022-03-14] MEDS: MAGNESIUM OXIDE 400 MG TABLET PO SCH (20:14)
[2022-03-14] MEDS: MULTIVITAMIN (CENTRUM) TABLET PO SCH (20:15)
[2022-03-14] MEDS: ATORVASTATIN 40 MG TABLET PO SCH (20:15)
[2022-03-14] MEDS: CLOPIDOGREL 75 MG TABLET PO SCH (20:15)
[2022-03-14] MEDS: NIACIN 500 MG TABLET PO SCH (20:15)
[2022-03-14] MEDS: amLODIPine 5 MG TABLET PO SCH (20:15)
[2022-03-15 04:58] LABS: Basophils # 0.1 10*3/uL (0.0-0.2); Basophils % 0.9 % (0.0-0.8); Eosinophils # 0.2 10*3/uL (0.0-0.87); Eosinophils % 1.7 % (0.00-10.9); Hematocrit 40.5 VOL% (42.0-52.0); Hemoglobin 12.6 GM/DL (14.0-18.0); Immature Granulocytes % 4.7 %; Immature Granulocytes Absolute 0.66 #; Lymphocytes # 1.5 10*3/uL (1.4-4.0); Lymphocytes % 10.7 % (21.2-54.2); Mean Corpuscular HGB Conc 31.1 GM/DL (32-36); Mean Corpuscular Volume 97.8 FL (87-102); Mean Platelet Volume 10.6 FL (9.6-12.0); Monocytes # 1.1 10*3/uL (0.11-0.8); Monocytes % 7.8 % (1.7-12.7); Neutrophils % 74.2 % (38.7-73.9); Platelet Count 349 T/CUMM (130-400); Red Blood Count 4.14 MC/CUMM (3.8-5.5); White Blood Count 13.9 T/CUMM (4-12)
[2022-03-15 05:11] LABS: Arterial Base Excess iSTAT 7 MMOL/L (-2.5-2.5); Arterial Bicarbonate iSTAT 32.5 MMOL/L (20-26); Arterial O2 Saturation iSTAT 93 % (95-100); Arterial PCO2 iSTAT 51 MM HG (35-48); Arterial PO2 iSTAT 68 MM HG (80-95); Arterial Total CO2 iSTAT 34 MMO/L (23-27); Arterial pH iSTAT 7.412 (7.35-7.45)
[2022-03-15 05:39] LABS: Calcium 8.9 MG/DL (8.5-10.1); Osmolality,Calculated 284.1 MOS/KG (273-304); Potassium 5.3 MMOL/L (3.5-5.1)
[2022-03-15] MEDS: ALBUTEROL/IPRATROPIUM 3 ML NEB RESP TX SCH ×4 (07:20→19:15)
[2022-03-15] MEDS ORDERED: methylPREDNISolone SOD SUC 40 MG/1 ML VIAL IV SCH (09:00)
[2022-03-15] MEDS: TAMSULOSIN 0.4 MG CAPSULE PO SCH ×2 (09:27→21:37)
[2022-03-15] MEDS: lisinopriL 5 MG TABLET PO SCH (09:27)
[2022-03-15] MEDS: ASPIRIN EC 81 MG TABLET PO SCH (09:27)
[2022-03-15] MEDS: PANTOPRAZOLE 40 MG TABLET PO SCH (09:27)
[2022-03-15] MEDS: INSULIN LISPRO 100 UNIT/ML SUBCUT SCH ×4 (09:27→21:38)
[2022-03-15] MEDS: NABUMETONE 500 MG TABLET PO SCH ×2 (09:27→21:36)
[2022-03-15] MEDS: GABAPENTIN 300 MG CAPSULE PO SCH ×2 (09:27→21:36)
[2022-03-15] MEDS: FINASTERIDE 5 MG TABLET PO SCH (09:27)
[2022-03-15] MEDS: CITALOPRAM 40 MG TABLET PO SCH (09:27)
[2022-03-15] MEDS: FUROSEMIDE 40 MG/4 ML VIAL IV SCH (09:28)
[2022-03-15] MEDS: ENOXAPARIN 40 MG/0.4 ML SYRINGE SUBCUT SCH (09:29)
[2022-03-15] MEDS: INSULIN GLARGINE 100 UNIT/ML SUBCUT SCH (09:35)
[2022-03-15 11:41] LABS: Specimen Source NASAL
[2022-03-15] MEDS: SODIUM ZIRCONIUM CYCLOSILICATE 10 GM PACK PO SCH ×2 (14:59→21:36)
[2022-03-15] MEDS: ATORVASTATIN 40 MG TABLET PO SCH (21:36)
[2022-03-15] MEDS: MULTIVITAMIN (CENTRUM) TABLET PO SCH (21:36)
[2022-03-15] MEDS: CLOPIDOGREL 75 MG TABLET PO SCH (21:36)
[2022-03-15] MEDS: NIACIN 500 MG TABLET PO SCH (21:36)
[2022-03-15] MEDS: amLODIPine 5 MG TABLET PO SCH (21:36)
[2022-03-15] MEDS: MAGNESIUM OXIDE 400 MG TABLET PO SCH (21:39)
[2022-03-15] MEDS: DESITIN 4OZ/NYSTATIN 15 GRAM MIXTURE PASTE TOP SCH (22:35)
[2022-03-16] MEDS: ALBUTEROL/IPRATROPIUM 3 ML NEB RESP TX SCH ×2 (00:15→07:30)
[2022-03-16 05:08] LABS: Basophils # 0.1 10*3/uL (0.0-0.2); Basophils % 0.4 % (0.0-0.8); Eosinophils # 0.2 10*3/uL (0.0-0.87); Eosinophils % 0.9 % (0.00-10.9); Hematocrit 38.7 VOL% (42.0-52.0); Hemoglobin 12.7 GM/DL (14.0-18.0); Immature Granulocytes % 4.1 %; Immature Granulocytes Absolute 0.71 #; Lymphocytes # 1.9 10*3/uL (1.4-4.0); Lymphocytes % 11.1 % (21.2-54.2); Mean Corpuscular HGB Conc 32.8 GM/DL (32-36); Mean Corpuscular Volume 93.7 FL (87-102); Mean Platelet Volume 10.2 FL (9.6-12.0); Monocytes # 1.1 10*3/uL (0.11-0.8); Monocytes % 6.4 % (1.7-12.7); Neutrophils % 77.1 % (38.7-73.9); Platelet Count 340 T/CUMM (130-400); Red Blood Count 4.13 MC/CUMM (3.8-5.5); Red Cell Distribution Width 12.8 % (9.3-17.3); White Blood Count 17.4 T/CUMM (4-12)
[2022-03-16 05:24] LABS: Calcium 9.1 MG/DL (8.5-10.1); Osmolality,Calculated 286.7 MOS/KG (273-304); Potassium 4.2 MMOL/L (3.5-5.1)
[2022-03-16 05:35] LABS: Band Neutrophils 2 % (0-10); Lymphocytes 10 % (20-55); Microcytosis Slight; Total Cells Counted 100
[2022-03-16] MEDS: NABUMETONE 500 MG TABLET PO SCH ×2 (08:56→22:18)
[2022-03-16] MEDS: FINASTERIDE 5 MG TABLET PO SCH (08:56)
[2022-03-16] MEDS: CITALOPRAM 40 MG TABLET PO SCH (08:56)
[2022-03-16] MEDS: PANTOPRAZOLE 40 MG TABLET PO SCH (08:56)
[2022-03-16] MEDS: ASPIRIN EC 81 MG TABLET PO SCH (08:56)
[2022-03-16] MEDS: GABAPENTIN 300 MG CAPSULE PO SCH ×2 (08:56→22:17)
[2022-03-16] MEDS: TAMSULOSIN 0.4 MG CAPSULE PO SCH ×2 (08:56→22:17)
[2022-03-16] MEDS: predniSONE 20 MG TABLET PO SCH ×2 (08:59→22:18)
[2022-03-16] MEDS: FUROSEMIDE 40 MG/4 ML VIAL IV SCH (09:01)
[2022-03-16] MEDS: INSULIN LISPRO 100 UNIT/ML SUBCUT SCH ×4 (09:01→22:51)
[2022-03-16] MEDS: DESITIN 4OZ/NYSTATIN 15 GRAM MIXTURE PASTE TOP SCH ×2 (09:02→22:18)
[2022-03-16] MEDS: ENOXAPARIN 40 MG/0.4 ML SYRINGE SUBCUT SCH (09:02)
[2022-03-16] MEDS: SODIUM ZIRCONIUM CYCLOSILICATE 10 GM PACK PO SCH ×3 (09:02→22:17)
[2022-03-16] MEDS: POLYVINYL 0.5%/POVIDONE 0.6% OPH SOLN 15 ML BOTTLE BOTH EYES PRN (09:09)
[2022-03-16] MEDS: INSULIN GLARGINE 100 UNIT/ML SUBCUT SCH (10:18)
[2022-03-16] MEDS ORDERED: atenoloL 25 MG TABLET PO ONE (12:44)
[2022-03-16] MEDS: LEVALBUTEROL 1.25 MG/3 ML NEB RESP TX SCH ×2 (13:57→20:23)
[2022-03-16] MEDS: amLODIPine 5 MG TABLET PO SCH (22:17)
[2022-03-16] MEDS: MAGNESIUM OXIDE 400 MG TABLET PO SCH (22:17)
[2022-03-16] MEDS: ATORVASTATIN 40 MG TABLET PO SCH (22:17)
[2022-03-16] MEDS: MULTIVITAMIN (CENTRUM) TABLET PO SCH (22:17)
[2022-03-16] MEDS: NIACIN 500 MG TABLET PO SCH (22:18)
[2022-03-16] MEDS: CLOPIDOGREL 75 MG TABLET PO SCH (22:18)
[2022-03-17] MEDS: LEVALBUTEROL 1.25 MG/3 ML NEB RESP TX SCH ×4 (00:10→19:00)
[2022-03-17 04:54] LABS: Basophils % 0.3 % (0.0-0.8); Eosinophils % 0.1 % (0.00-10.9); Hematocrit 38.8 VOL% (42.0-52.0); Hemoglobin 12.2 GM/DL (14.0-18.0); Immature Granulocytes Absolute 0.46 #; Lymphocytes % 6.3 % (21.2-54.2); Mean Corpuscular HGB Conc 31.4 GM/DL (32-36); Mean Platelet Volume 10.3 FL (9.6-12.0); Monocytes # 0.6 10*3/uL (0.11-0.8); Neutrophils % 86.3 % (38.7-73.9); Platelet Count 313 T/CUMM (130-400); Red Cell Distribution Width 12.6 % (9.3-17.3); White Blood Count 15.4 T/CUMM (4-12)
[2022-03-17 05:11] LABS: Calcium 8.7 MG/DL (8.5-10.1); Osmolality,Calculated 286.1 MOS/KG (273-304); Potassium 4.8 MMOL/L (3.5-5.1)
[2022-03-17] MEDS: atenoloL 25 MG TABLET PO SCH (09:00)
[2022-03-17] MEDS: CITALOPRAM 40 MG TABLET PO SCH (09:00)
[2022-03-17] MEDS: INSULIN LISPRO 100 UNIT/ML SUBCUT SCH ×4 (09:00→22:08)
[2022-03-17] MEDS: INSULIN GLARGINE 100 UNIT/ML SUBCUT SCH (09:00)
[2022-03-17] MEDS: ENOXAPARIN 40 MG/0.4 ML SYRINGE SUBCUT SCH (09:00)
[2022-03-17] MEDS: FINASTERIDE 5 MG TABLET PO SCH (09:00)
[2022-03-17] MEDS: GABAPENTIN 300 MG CAPSULE PO SCH ×2 (09:01→22:09)
[2022-03-17] MEDS: SODIUM ZIRCONIUM CYCLOSILICATE 10 GM PACK PO SCH (09:01)
[2022-03-17] MEDS: predniSONE 20 MG TABLET PO SCH ×2 (09:01→22:10)
[2022-03-17] MEDS: FUROSEMIDE 40 MG TABLET PO SCH (09:01)
[2022-03-17] MEDS: NABUMETONE 500 MG TABLET PO SCH ×2 (09:01→22:10)
[2022-03-17] MEDS: ASPIRIN EC 81 MG TABLET PO SCH (09:01)
[2022-03-17] MEDS: TAMSULOSIN 0.4 MG CAPSULE PO SCH ×2 (09:01→22:08)
[2022-03-17] MEDS: PANTOPRAZOLE 40 MG TABLET PO SCH (09:01)
[2022-03-17] MEDS: DESITIN 4OZ/NYSTATIN 15 GRAM MIXTURE PASTE TOP SCH ×2 (09:01→22:10)
[2022-03-17] MEDS: MULTIVITAMIN (CENTRUM) TABLET PO SCH (22:08)
[2022-03-17] MEDS: MAGNESIUM OXIDE 400 MG TABLET PO SCH (22:09)
[2022-03-17] MEDS: amLODIPine 5 MG TABLET PO SCH (22:09)
[2022-03-17] MEDS: ATORVASTATIN 40 MG TABLET PO SCH (22:09)
[2022-03-17] MEDS: CLOPIDOGREL 75 MG TABLET PO SCH (22:10)
[2022-03-17] MEDS: NIACIN 500 MG TABLET PO SCH (22:10)
[2022-03-18] MEDS: LEVALBUTEROL 1.25 MG/3 ML NEB RESP TX SCH ×4 (00:45→19:20)
[2022-03-18 06:14] LABS: Basophils % 0.3 % (0.0-0.8); Eosinophils % 0.1 % (0.00-10.9); Hematocrit 36.8 VOL% (42.0-52.0); Hemoglobin 11.8 GM/DL (14.0-18.0); Immature Granulocytes % 4.4 %; Immature Granulocytes Absolute 0.64 #; Lymphocytes % 6.9 % (21.2-54.2); Mean Corpuscular HGB Conc 32.1 GM/DL (32-36); Mean Corpuscular Volume 94.8 FL (87-102); Mean Platelet Volume 10.5 FL (9.6-12.0); Monocytes # 0.7 10*3/uL (0.11-0.8); Monocytes % 4.6 % (1.7-12.7); Neutrophils % 83.7 % (38.7-73.9); Platelet Count 286 T/CUMM (130-400); Red Blood Count 3.88 MC/CUMM (3.8-5.5); White Blood Count 14.4 T/CUMM (4-12)
[2022-03-18 06:35] LABS: Calcium 8.7 MG/DL (8.5-10.1); Osmolality,Calculated 291.7 MOS/KG (273-304); Potassium 4.6 MMOL/L (3.5-5.1)
[2022-03-18 06:44] LABS: Lymphocytes 7 % (20-55); Microcytosis Slight; Total Cells Counted 100
[2022-03-18] MEDS ORDERED: INSULIN GLARGINE 100 UNIT/ML SUBCUT SCH (09:00)
[2022-03-18] MEDS: GABAPENTIN 300 MG CAPSULE PO SCH ×2 (10:41→22:13)
[2022-03-18] MEDS: CITALOPRAM 40 MG TABLET PO SCH (10:42)
[2022-03-18] MEDS: NABUMETONE 500 MG TABLET PO SCH ×2 (10:42→22:13)
[2022-03-18] MEDS: ASPIRIN EC 81 MG TABLET PO SCH (10:42)
[2022-03-18] MEDS: FINASTERIDE 5 MG TABLET PO SCH (10:42)
[2022-03-18] MEDS: FUROSEMIDE 40 MG TABLET PO SCH (10:42)
[2022-03-18] MEDS: PANTOPRAZOLE 40 MG TABLET PO SCH (10:42)
[2022-03-18] MEDS: predniSONE 20 MG TABLET PO SCH ×2 (10:42→22:12)
[2022-03-18] MEDS: atenoloL 25 MG TABLET PO SCH (10:43)
[2022-03-18] MEDS: INSULIN LISPRO 100 UNIT/ML SUBCUT SCH ×4 (10:43→22:13)
[2022-03-18] MEDS: TAMSULOSIN 0.4 MG CAPSULE PO SCH ×2 (10:43→22:12)
[2022-03-18] MEDS: ENOXAPARIN 40 MG/0.4 ML SYRINGE SUBCUT SCH (10:50)
[2022-03-18] MEDS: DESITIN 4OZ/NYSTATIN 15 GRAM MIXTURE PASTE TOP SCH ×2 (10:54→22:19)
[2022-03-18] MEDS: POLYVINYL 0.5%/POVIDONE 0.6% OPH SOLN 15 ML BOTTLE BOTH EYES PRN (17:25)
[2022-03-18] MEDS: MULTIVITAMIN (CENTRUM) TABLET PO SCH (22:12)
[2022-03-18] MEDS: NIACIN 500 MG TABLET PO SCH (22:13)
[2022-03-18] MEDS: ATORVASTATIN 40 MG TABLET PO SCH (22:13)
[2022-03-18] MEDS: MAGNESIUM OXIDE 400 MG TABLET PO SCH (22:13)
[2022-03-18] MEDS: CLOPIDOGREL 75 MG TABLET PO SCH (22:13)
[2022-03-18] MEDS: amLODIPine 5 MG TABLET PO SCH (22:23)
[2022-03-19] MEDS: LEVALBUTEROL 1.25 MG/3 ML NEB RESP TX SCH ×4 (00:10→19:13)
[2022-03-19] MEDS: predniSONE 20 MG TABLET PO SCH (10:12)
[2022-03-19] MEDS: GABAPENTIN 300 MG CAPSULE PO SCH ×2 (10:22→22:10)
[2022-03-19] MEDS: FUROSEMIDE 40 MG TABLET PO SCH (10:23)
[2022-03-19] MEDS: ASPIRIN EC 81 MG TABLET PO SCH (10:23)
[2022-03-19] MEDS: CITALOPRAM 40 MG TABLET PO SCH (10:23)
[2022-03-19] MEDS: atenoloL 25 MG TABLET PO SCH (10:23)
[2022-03-19] MEDS: FINASTERIDE 5 MG TABLET PO SCH (10:23)
[2022-03-19] MEDS: predniSONE 10 MG TABLET PO SCH ×2 (10:24→22:09)
[2022-03-19] MEDS: NABUMETONE 500 MG TABLET PO SCH ×2 (10:24→22:09)
[2022-03-19] MEDS: PANTOPRAZOLE 40 MG TABLET PO SCH (10:24)
[2022-03-19] MEDS: TAMSULOSIN 0.4 MG CAPSULE PO SCH ×2 (10:24→22:09)
[2022-03-19] MEDS: DESITIN 4OZ/NYSTATIN 15 GRAM MIXTURE PASTE TOP SCH ×2 (10:25→22:10)
[2022-03-19] MEDS: INSULIN LISPRO 100 UNIT/ML SUBCUT SCH ×4 (10:26→22:08)
[2022-03-19] MEDS: ENOXAPARIN 40 MG/0.4 ML SYRINGE SUBCUT SCH (10:27)
[2022-03-19] MEDS: INSULIN GLARGINE 100 UNIT/ML SUBCUT SCH (16:18)
[2022-03-19] MEDS: NIACIN 500 MG TABLET PO SCH (22:08)
[2022-03-19] MEDS: amLODIPine 5 MG TABLET PO SCH (22:09)
[2022-03-19] MEDS: CLOPIDOGREL 75 MG TABLET PO SCH (22:09)
[2022-03-19] MEDS: MAGNESIUM OXIDE 400 MG TABLET PO SCH (22:09)
[2022-03-19] MEDS: MULTIVITAMIN (CENTRUM) TABLET PO SCH (22:09)
[2022-03-19] MEDS: ATORVASTATIN 40 MG TABLET PO SCH (22:09)
[2022-03-20] MEDS: LEVALBUTEROL 1.25 MG/3 ML NEB RESP TX SCH ×4 (00:21→19:44)
[2022-03-20 05:14] LABS: Basophils # 0.1 10*3/uL (0.0-0.2); Basophils % 0.8 % (0.0-0.8); Eosinophils # 0.1 10*3/uL (0.0-0.87); Eosinophils % 0.8 % (0.00-10.9); Hemoglobin 11.9 GM/DL (14.0-18.0); Immature Granulocytes % 7.1 %; Immature Granulocytes Absolute 0.92 #; Lymphocytes # 1.4 10*3/uL (1.4-4.0); Lymphocytes % 10.6 % (21.2-54.2); Mean Corpuscular HGB Conc 31.3 GM/DL (32-36); Mean Corpuscular Volume 96.2 FL (87-102); Mean Platelet Volume 10.4 FL (9.6-12.0); Monocytes % 7.4 % (1.7-12.7); NRBC # 0.03 10*3/uL; Neutrophils % 73.3 % (38.7-73.9); Platelet Count 253 T/CUMM (130-400); Red Blood Count 3.95 MC/CUMM (3.8-5.5); Red Cell Distribution Width 13.1 % (9.3-17.3)
[2022-03-20 05:49] LABS: Eosinophils 1 % (0-10); Lymphocytes 3 % (20-55); Platelet Estimate Normal; Total Cells Counted 100
[2022-03-20 05:51] LABS: Osmolality,Calculated 287.1 MOS/KG (273-304); Potassium 4.6 MMOL/L (3.5-5.1)
[2022-03-20] MEDS: INSULIN LISPRO 100 UNIT/ML SUBCUT SCH ×4 (08:52→21:52)
[2022-03-20] MEDS: ENOXAPARIN 40 MG/0.4 ML SYRINGE SUBCUT SCH (08:53)
[2022-03-20] MEDS: INSULIN GLARGINE 100 UNIT/ML SUBCUT SCH (08:53)
[2022-03-20] MEDS: TAMSULOSIN 0.4 MG CAPSULE PO SCH ×2 (08:55→21:51)
[2022-03-20] MEDS: FINASTERIDE 5 MG TABLET PO SCH (08:56)
[2022-03-20] MEDS: PANTOPRAZOLE 40 MG TABLET PO SCH (08:56)
[2022-03-20] MEDS: GABAPENTIN 300 MG CAPSULE PO SCH ×2 (08:56→21:52)
[2022-03-20] MEDS: ASPIRIN EC 81 MG TABLET PO SCH (08:56)
[2022-03-20] MEDS: atenoloL 25 MG TABLET PO SCH (08:56)
[2022-03-20] MEDS: CITALOPRAM 40 MG TABLET PO SCH (08:57)
[2022-03-20] MEDS: predniSONE 10 MG TABLET PO SCH ×2 (08:57→21:51)
[2022-03-20] MEDS: NABUMETONE 500 MG TABLET PO SCH ×2 (08:57→21:51)
[2022-03-20] MEDS: FUROSEMIDE 40 MG TABLET PO SCH (08:57)
[2022-03-20] MEDS: DESITIN 4OZ/NYSTATIN 15 GRAM MIXTURE PASTE TOP SCH ×2 (08:57→21:52)
[2022-03-20] MEDS ORDERED: ZINC OXIDE PASTE 113 GM TUBE TOP PRN (15:03)
[2022-03-20] MEDS: MULTIVITAMIN (CENTRUM) TABLET PO SCH (21:51)
[2022-03-20] MEDS: NIACIN 500 MG TABLET PO SCH (21:51)
[2022-03-20] MEDS: ATORVASTATIN 40 MG TABLET PO SCH (21:51)
[2022-03-20] MEDS: CLOPIDOGREL 75 MG TABLET PO SCH (21:51)
[2022-03-20] MEDS: MAGNESIUM OXIDE 400 MG TABLET PO SCH (21:52)
[2022-03-20] MEDS: amLODIPine 5 MG TABLET PO SCH (21:52)
[2022-03-21] MEDS: LEVALBUTEROL 1.25 MG/3 ML NEB RESP TX SCH ×4 (00:29→19:51)
[2022-03-21] MEDS: INSULIN LISPRO 100 UNIT/ML SUBCUT SCH ×4 (09:10→22:14)
[2022-03-21] MEDS: INSULIN GLARGINE 100 UNIT/ML SUBCUT SCH (09:11)
[2022-03-21] MEDS: FUROSEMIDE 40 MG TABLET PO SCH (09:12)
[2022-03-21] MEDS: atenoloL 25 MG TABLET PO SCH (09:12)
[2022-03-21] MEDS: CITALOPRAM 40 MG TABLET PO SCH (09:12)
[2022-03-21] MEDS: predniSONE 10 MG TABLET PO SCH (09:12)
[2022-03-21] MEDS: PANTOPRAZOLE 40 MG TABLET PO SCH (09:12)
[2022-03-21] MEDS: FINASTERIDE 5 MG TABLET PO SCH (09:12)
[2022-03-21] MEDS: ENOXAPARIN 40 MG/0.4 ML SYRINGE SUBCUT SCH (09:12)
[2022-03-21] MEDS: GABAPENTIN 300 MG CAPSULE PO SCH ×2 (09:12→22:04)
[2022-03-21] MEDS: TAMSULOSIN 0.4 MG CAPSULE PO SCH ×2 (09:12→22:04)
[2022-03-21] MEDS: NABUMETONE 500 MG TABLET PO SCH ×2 (09:12→22:05)
[2022-03-21] MEDS: ASPIRIN EC 81 MG TABLET PO SCH (09:12)
[2022-03-21] MEDS: DESITIN 4OZ/NYSTATIN 15 GRAM MIXTURE PASTE TOP SCH ×2 (09:12→22:05)
[2022-03-21] MEDS: MAGNESIUM OXIDE 400 MG TABLET PO SCH (22:04)
[2022-03-21] MEDS: amLODIPine 5 MG TABLET PO SCH (22:04)
[2022-03-21] MEDS: CLOPIDOGREL 75 MG TABLET PO SCH (22:04)
[2022-03-21] MEDS: NIACIN 500 MG TABLET PO SCH (22:05)
[2022-03-21] MEDS: ATORVASTATIN 40 MG TABLET PO SCH (22:05)
[2022-03-21] MEDS: MULTIVITAMIN (CENTRUM) TABLET PO SCH (22:05)
[2022-03-22] MEDS: LEVALBUTEROL 1.25 MG/3 ML NEB RESP TX SCH ×4 (01:33→19:50)
[2022-03-22 05:41] LABS: Basophils # 0.1 10*3/uL (0.0-0.2); Basophils % 0.8 % (0.0-0.8); Eosinophils # 0.3 10*3/uL (0.0-0.87); Eosinophils % 2.2 % (0.00-10.9); Hematocrit 39.6 VOL% (42.0-52.0); Hemoglobin 13.1 GM/DL (14.0-18.0); Immature Granulocytes % 5.7 %; Immature Granulocytes Absolute 0.74 #; Lymphocytes # 2.7 10*3/uL (1.4-4.0); Mean Corpuscular HGB Conc 33.1 GM/DL (32-36); Mean Corpuscular Volume 94.3 FL (87-102); Mean Platelet Volume 10.2 FL (9.6-12.0); Monocytes # 0.9 10*3/uL (0.11-0.8); NRBC # 0.07 10*3/uL; Neutrophils % 63.3 % (38.7-73.9); Platelet Count 202 T/CUMM (130-400); Red Cell Distribution Width 13.6 % (9.3-17.3)
[2022-03-22 06:13] LABS: Eosinophils 4 % (0-10); Lymphocytes 21 % (20-55); Platelet Estimate Adequate; Total Cells Counted 100
[2022-03-22 06:45] LABS: Calcium 8.9 MG/DL (8.5-10.1); Osmolality,Calculated 285.5 MOS/KG (273-304)
[2022-03-22] MEDS: INSULIN LISPRO 100 UNIT/ML SUBCUT SCH ×4 (08:04→21:13)
[2022-03-22] MEDS: predniSONE 10 MG TABLET PO SCH (10:06)
[2022-03-22] MEDS: FINASTERIDE 5 MG TABLET PO SCH (10:06)
[2022-03-22] MEDS: GABAPENTIN 300 MG CAPSULE PO SCH ×2 (10:06→21:06)
[2022-03-22] MEDS: CITALOPRAM 40 MG TABLET PO SCH (10:06)
[2022-03-22] MEDS: ASPIRIN EC 81 MG TABLET PO SCH (10:07)
[2022-03-22] MEDS: PANTOPRAZOLE 40 MG TABLET PO SCH (10:07)
[2022-03-22] MEDS: NABUMETONE 500 MG TABLET PO SCH ×2 (10:07→21:05)
[2022-03-22] MEDS: atenoloL 25 MG TABLET PO SCH (10:07)
[2022-03-22] MEDS: ENOXAPARIN 40 MG/0.4 ML SYRINGE SUBCUT SCH (10:07)
[2022-03-22] MEDS: TAMSULOSIN 0.4 MG CAPSULE PO SCH ×2 (10:07→21:06)
[2022-03-22] MEDS: FUROSEMIDE 40 MG TABLET PO SCH (10:07)
[2022-03-22] MEDS: INSULIN GLARGINE 100 UNIT/ML SUBCUT SCH (10:08)
[2022-03-22] MEDS: DESITIN 4OZ/NYSTATIN 15 GRAM MIXTURE PASTE TOP SCH ×2 (10:08→21:08)
[2022-03-22] MEDS: CLOPIDOGREL 75 MG TABLET PO SCH (21:06)
[2022-03-22] MEDS: ATORVASTATIN 40 MG TABLET PO SCH (21:06)
[2022-03-22] MEDS: amLODIPine 5 MG TABLET PO SCH (21:06)
[2022-03-22] MEDS: MAGNESIUM OXIDE 400 MG TABLET PO SCH (21:06)
[2022-03-22] MEDS: NIACIN 500 MG TABLET PO SCH (21:06)
[2022-03-22] MEDS: MULTIVITAMIN (CENTRUM) TABLET PO SCH (21:06)
[2022-03-23] MEDS: LEVALBUTEROL 1.25 MG/3 ML NEB RESP TX SCH ×2 (00:33→07:20)
[2022-03-23] MEDS: INSULIN LISPRO 100 UNIT/ML SUBCUT SCH (07:51)
[2022-03-23 08:17] LABS: Basophils # 0.1 10*3/uL (0.0-0.2); Basophils % 0.8 % (0.0-0.8); Eosinophils # 0.3 10*3/uL (0.0-0.87); Eosinophils % 2.5 % (0.00-10.9); Hematocrit 41.8 VOL% (42.0-52.0); Hemoglobin 13.4 GM/DL (14.0-18.0); Immature Granulocytes % 4.6 %; Immature Granulocytes Absolute 0.55 #; Lymphocytes # 2.3 10*3/uL (1.4-4.0); Mean Corpuscular HGB Conc 32.1 GM/DL (32-36); Mean Corpuscular Volume 95.7 FL (87-102); Mean Platelet Volume 9.7 FL (9.6-12.0); Monocytes # 0.8 10*3/uL (0.11-0.8); Monocytes % 6.9 % (1.7-12.7); NRBC # 0.04 10*3/uL; Neutrophils % 66.2 % (38.7-73.9); Platelet Count 189 T/CUMM (130-400); Red Blood Count 4.37 MC/CUMM (3.8-5.5); White Blood Count 11.8 T/CUMM (4-12)
[2022-03-23 08:49] LABS: Band Neutrophils 1 % (0-10); Lymphocytes 18 % (20-55); Total Cells Counted 100
[2022-03-23 08:50] LABS: Platelet Estimate Adequate
[2022-03-23 09:01] VITALS: BP 123/73
[2022-03-23] MEDS: predniSONE 10 MG TABLET PO SCH (09:18)
[2022-03-23] MEDS: FINASTERIDE 5 MG TABLET PO SCH (09:18)
[2022-03-23] MEDS: GABAPENTIN 300 MG CAPSULE PO SCH (09:18)
[2022-03-23] MEDS: atenoloL 25 MG TABLET PO SCH (09:18)
[2022-03-23] MEDS: CITALOPRAM 40 MG TABLET PO SCH (09:18)
[2022-03-23] MEDS: ASPIRIN EC 81 MG TABLET PO SCH (09:18)
[2022-03-23] MEDS: PANTOPRAZOLE 40 MG TABLET PO SCH (09:18)
[2022-03-23] MEDS: TAMSULOSIN 0.4 MG CAPSULE PO SCH (09:18)
[2022-03-23] MEDS: NABUMETONE 500 MG TABLET PO SCH (09:18)
[2022-03-23] MEDS: FUROSEMIDE 40 MG TABLET PO SCH (09:18)
[2022-03-23] MEDS: ENOXAPARIN 40 MG/0.4 ML SYRINGE SUBCUT SCH (09:20)
[2022-03-23] MEDS: DESITIN 4OZ/NYSTATIN 15 GRAM MIXTURE PASTE TOP SCH (09:20)
[2022-03-23] MEDS: INSULIN GLARGINE 100 UNIT/ML SUBCUT SCH (09:21)
== END 2022-03-23 11:14 | disposition swing bed (61) | DRG 193 ==
LOC: EDUNIT# → EDBD → N.ED 10:30 → SUATTDRO 14:03 → N.EDINP 14:03 → N.5E 15:57
PROVIDERS: ADMIT Internal Medicine; ATTEND Internal Medicine